=== PATIENT | male | born 1965 | race Caucasian/White ===

== ENCOUNTER 2020-02-04 11:10 | Outpatient (REF) | payer OTHER, SELFPAY ==
[2020-02-04 13:29] LABS: MANUAL DIFF FLAG NO
[2020-02-04 13:34] LABS: Basophils Absolute Auto 0.1 X10*3/uL (0.0-0.2); Basophils Percent Auto 0.9 % (0-2); Eosinophils Absolute Auto 0.1 X10*3/uL (0.0-0.4); Eosinophils Percent Auto 1.2 % (0-4); Hematocrit 46.9 % (42-52); Hemoglobin 15.4 g/dl (14.0-18.0); Imm Gran Abs Auto 0.02 X10*3/uL (0.00-0.03); Imm Gran Pct Auto 0.3 % (0.0-0.4); Lymphocytes Absolute Auto 1.4 X10*3/uL (1.2-4.9); Lymphocytes Percent Auto 17.8 % (20-40); Mean Corpuscular HGB Conc 32.8 g/dl (31.0-36.0); Mean Corpuscular Hemoglobin 27.8 pg (27.0-33.0); Mean Corpuscular Volume 84.7 fL (80-98); Mean Platelet Volume 11.5 fL (9.4-12.4); Monocytes Absolute Auto 0.5 X10*3/uL (0.1-1.2); Monocytes Percent Auto 7.1 % (2-11); Neutrophils Absolute Auto 5.5 X10*3/uL (2.0-8.3); Neutrophils Percent Auto 72.7 % (45-73); Platelet Count 256 X10*3/uL (160-400); Red Blood Count 5.54 X10*6/uL (4.60-5.80); Red Cell Distribution Width 12.6 % (11.0-16.0); White Blood Count 7.6 X10*3/uL (4.8-10.8)
[2020-02-04 13:41] LABS: Estimated Average Glucose 295 mg/dL; Hemoglobin A1c % 11.9 %
[2020-02-04 14:06] LABS: Glucose Urine UA >=1000 MG/DL (NEG); Leukocyte Esterase Urine NEG (NEG); Nitrite Urine NEG (NEG); Urine Blood NEG (NEG); Urine Ketones 15 MG/DL (NEG); Urine Protein NEG (NEG-TRACE)
[2020-02-04 14:08] LABS: Appearance Urine CLEAR; Color Urine YELLOW
[2020-02-04 14:31] LABS: RBC Urine 0-2 /HPF (0); WBC Urine 0-2 /HPF (0-4)
[2020-02-04 14:34] LABS: Alanine Aminotransferase 29 U/L (0-40); Albumin Level 4.3 g/dL (3.5-5.0); Alkaline Phosphatase 69 U/L (39-117); Anion Gap 16 (12-20); Aspartate Amino Transferase 15 U/L (5-37); Bilirubin Total 0.8 mg/dL (0.0-1.0); Blood Urea Nitrogen 20 mg/dL (9-16); C Reactive Protein 0.11 mg/dL (< or = 0.50); Calcium 9.4 mg/dL (8.4-10.2); Carbon Dioxide 27 mmol/L (22-29); Chloride 101 mmol/L (96-108); Estimated Glomerular Filt Rate 52; Glucose Random 315 mg/dL (60-115); Potassium 4.7 mmol/l (3.3-5.1); Sodium 139 mmol/L (135-145); Total Protein 6.9 g/dL (6.5-8.0)
[2020-02-04 14:40] LABS: Creatinine Urine 73.31 mg/dL; Microalbumin Urine < 5.0 mg/L
[2020-02-04 14:58] LABS: Prostate Specific Antigen Scr 0.78 ng/mL (<0.05-4.0)
== END 2020-02-04 11:11 | disposition home or self-care (01) ==
LOC: HO.10HDL 11:10
PROVIDERS: PCP Internal Medicine; Visit Provider Internal Medicine
DX: E11.9 Type 2 diabetes mellitus without complications (principal); I10 Essential (primary) hypertension; R30.0 Dysuria; R35.1 Nocturia
CPT/HCPCS: 36415; 80053; 81001; 82043; 83036; 84153; 85025; 86140; 87086; 88112

== ENCOUNTER 2020-05-05 11:45 | Outpatient (REF) | payer OTHER, SELFPAY ==
[2020-05-05 13:43] LABS: MANUAL DIFF FLAG NO
[2020-05-05 13:47] LABS: Basophils Absolute Auto 0.1 X10*3/uL (0.0-0.2); Basophils Percent Auto 0.7 % (0-2); Eosinophils Absolute Auto 0.1 X10*3/uL (0.0-0.4); Eosinophils Percent Auto 0.7 % (0-4); Hematocrit 44.5 % (42-52); Hemoglobin 14.9 g/dl (14.0-18.0); Imm Gran Abs Auto 0.03 X10*3/uL (0.00-0.03); Imm Gran Pct Auto 0.4 % (0.0-0.4); Lymphocytes Absolute Auto 1.2 X10*3/uL (1.2-4.9); Lymphocytes Percent Auto 16.6 % (20-40); Mean Corpuscular HGB Conc 33.5 g/dl (31.0-36.0); Mean Corpuscular Hemoglobin 28.4 pg (27.0-33.0); Mean Corpuscular Volume 84.9 fL (80-98); Mean Platelet Volume 11.4 fL (9.4-12.4); Monocytes Absolute Auto 0.5 X10*3/uL (0.1-1.2); Neutrophils Absolute Auto 5.3 X10*3/uL (2.0-8.3); Neutrophils Percent Auto 74.6 % (45-73); Platelet Count 263 X10*3/uL (160-400); Red Blood Count 5.24 X10*6/uL (4.60-5.80); Red Cell Distribution Width 13.9 % (11.0-16.0)
[2020-05-05 13:59] LABS: Estimated Average Glucose 114 mg/dL; Hemoglobin A1c % 5.6 %
[2020-05-05 14:29] LABS: Alanine Aminotransferase 21 U/L (0-40); Albumin Level 4.1 g/dL (3.5-5.0); Alkaline Phosphatase 64 U/L (39-117); Anion Gap 16 (12-20); Aspartate Amino Transferase 20 U/L (5-37); Bilirubin Total 1.2 mg/dL (0.0-1.0); Blood Urea Nitrogen 13 mg/dL (9-16); Calcium 9.1 mg/dL (8.4-10.2); Carbon Dioxide 26 mmol/L (22-29); Chloride 101 mmol/L (96-108); Estimated Glomerular Filt Rate > 60; Glucose Random 93 mg/dL (60-115); Potassium 4.2 mmol/L (3.3-5.1); Sodium 139 mmol/L (135-145); Total Protein 6.7 g/dL (6.5-8.0)
[2020-05-05 14:52] LABS: Creatinine Urine 71.82 mg/dL; Microalbumin Urine < 5.0 mg/L
== END 2020-05-05 11:46 | disposition home or self-care (01) ==
LOC: HO.10HDL 11:45
PROVIDERS: Visit Provider Internal Medicine
DX: I12.9 Hypertensive chronic kidney disease with stage 1 through stage 4 chronic kidney disease, or unspecified chronic kidney disease (principal); N18.9 Chronic kidney disease, unspecified; E11.22 Type 2 diabetes mellitus with diabetic chronic kidney disease
CPT/HCPCS: 36415; 80053; 82043; 83036; 85025

== ENCOUNTER 2020-05-07 15:12 | Outpatient (REF) | payer OTHER, SELFPAY ==
--- NOTE | ~2020-05-07 | US_ITS ---
EXAMINATION: US RETROPERITONEAL LIMITED (RENAL ONLY) CLINICAL INFORMATION: Renal failure, hypertension. COMPARISON: None TECHNIQUE: Real-time imaging of the kidneys. FINDINGS: RIGHT KIDNEY: 10.2 x 4.6 x 4.4 cm (SAG x AP x TRV). The kidney is normal in size, contour, and echogenicity. Renal cortical thickness is normal. No calculi or focal parenchymal lesions. No hydronephrosis. LEFT KIDNEY: 11.9 x 5.0 x 4.6 cm (SAG x AP x TRV). The kidney is normal in size, contour, and echogenicity. Renal cortical thickness is normal. No renal calculi or hydronephrosis. There is anechoic cyst in the midpole measuring 1.1 x 0.9 x 0.9 cm. US/US renal BI IMPRESSION: Small anechoic cyst midpole left kidney. There are no echogenic stones or hydronephrosis.
== END 2020-05-07 15:13 | disposition home or self-care (01) ==
LOC: HO.US 15:12
PROVIDERS: PCP Internal Medicine; Visit Provider Internal Medicine Nephrology
DX: N17.9 Acute kidney failure, unspecified (principal); I10 Essential (primary) hypertension
CPT/HCPCS: 76775

== ENCOUNTER 2020-05-12 07:52 | Outpatient (REF) | payer OTHER, SELFPAY ==
[2020-05-12 08:45] LABS: MANUAL DIFF FLAG NO
[2020-05-12 08:51] LABS: Basophils Percent Auto 0.7 % (0-2); Eosinophils Absolute Auto 0.1 X10*3/uL (0.0-0.4); Eosinophils Percent Auto 1.7 % (0-4); Hematocrit 47.1 % (42-52); Hemoglobin 15.2 g/dl (14.0-18.0); Imm Gran Abs Auto 0.02 X10*3/uL (0.00-0.03); Imm Gran Pct Auto 0.3 % (0.0-0.4); Lymphocytes Absolute Auto 1.5 X10*3/uL (1.2-4.9); Lymphocytes Percent Auto 24.7 % (20-40); Mean Corpuscular HGB Conc 32.3 g/dl (31.0-36.0); Mean Corpuscular Hemoglobin 27.9 pg (27.0-33.0); Mean Corpuscular Volume 86.6 fL (80-98); Mean Platelet Volume 11.4 fL (9.4-12.4); Monocytes Absolute Auto 0.5 X10*3/uL (0.1-1.2); Monocytes Percent Auto 7.9 % (2-11); Neutrophils Absolute Auto 3.9 X10*3/uL (2.0-8.3); Neutrophils Percent Auto 64.7 % (45-73); Platelet Count 265 X10*3/uL (160-400); Red Blood Count 5.44 X10*6/uL (4.60-5.80); Red Cell Distribution Width 14.1 % (11.0-16.0)
[2020-05-12 09:07] LABS: Alanine Aminotransferase 22 U/L (0-40); Albumin Level 4.1 g/dL (3.5-5.0); Alkaline Phosphatase 56 U/L (39-117); Anion Gap 16 (12-20); Aspartate Amino Transferase 16 U/L (5-37); Blood Urea Nitrogen 15 mg/dL (9-16); Calcium 9.2 mg/dL (8.4-10.2); Carbon Dioxide 26 mmol/L (22-29); Chloride 102 mmol/L (96-108); Estimated Glomerular Filt Rate > 60; Glucose Random 119 mg/dL (60-115); Potassium 4.4 mmol/L (3.3-5.1); Sodium 140 mmol/L (135-145); Total Protein 6.6 g/dL (6.5-8.0); Uric Acid 7.2 mg/dL (3.4-7.0)
[2020-05-12 09:31] LABS: HBsAGNum1 0.14 S/CO (0.00-0.99); Hepatitis B Surface Antigen Negative (Negative)
[2020-05-12 09:35] LABS: ~HepC Num1 0.04 S/CO (0.00-0.79); ~Hepatitis C Antibody Nonreactive (Nonreactive)
[2020-05-12 10:07] LABS: Glucose Urine UA NEG (NEG); Leukocyte Esterase Urine NEG (NEG); Nitrite Urine NEG (NEG); Specific Gravity - Urine 1.025 (1.005-1.025); Urine Blood NEG (NEG); Urine Ketones 40 MG/DL (NEG); Urine Protein NEG (NEG-TRACE)
[2020-05-12 10:08] LABS: Appearance Urine CLEAR; Color Urine YELLOW
[2020-05-12 10:49] LABS: Creatinine Urine 104.46 mg/dL; Total Protein Urine Random < 7 mg/dL (<12)
[2020-05-13 14:16] LABS: Complement C3 109 mg/dL (82-185)
[2020-05-13 14:42] LABS: Myeloperoxidase Antibody <1.0 AI; Proteinase 3 PR3 Antibodies <1.0 AI
[2020-05-13 15:06] LABS: Prot Elec - Albumin 3.9 g/dL (3.8-4.8); Prot Elec - Alpha1 0.3 g/dL (0.2-0.3); Prot Elec - Alpha2 0.7 g/dL (0.5-0.9); Prot Elec - Beta 1 0.5 g/dL (0.4-0.6); Prot Elec - Beta 2 0.4 g/dL (0.2-0.5); Prot Elec - Gamma 0.9 g/dL (0.8-1.7); Prot Elec - Total Protein 6.6 g/dL (6.1-8.1)
== END 2020-05-12 07:53 | disposition home or self-care (01) ==
LOC: HO.LAB 07:52
PROVIDERS: PCP Internal Medicine; Visit Provider Internal Medicine Nephrology
DX: I10 Essential (primary) hypertension (principal); N17.9 Acute kidney failure, unspecified
CPT/HCPCS: 36415; 80053; 81003; 82550; 84155; 84156; 84165; 84550; 85025; 86021; 86160; 86335; 86803; 87340

== ENCOUNTER 2020-08-13 07:26 | Outpatient (REF) | payer OTHER, SELFPAY ==
[2020-08-13 08:21] LABS: Estimated Average Glucose 105 mg/dL; Hemoglobin A1c % 5.3 %
[2020-08-13 08:29] LABS: Alanine Aminotransferase 16 U/L (0-40); Albumin Level 4.1 g/dL (3.5-5.0); Alkaline Phosphatase 60 U/L (39-117); Anion Gap 12 (12-20); Aspartate Amino Transferase 14 U/L (5-37); Bilirubin Total 0.9 mg/dL (0.0-1.0); Blood Urea Nitrogen 15 mg/dL (9-16); Calcium 9.7 mg/dL (8.4-10.2); Carbon Dioxide 29 mmol/L (22-29); Chloride 104 mmol/L (96-108); Cholesterol 256 mg/dL; Estimated Glomerular Filt Rate > 60; Glucose Fasting 113 mg/dL (60-99); HDL Cholesterol 51 mg/dL; LDL Cholesterol Calculated 184 mg/dl; Potassium 4.4 mmol/L (3.3-5.1); Sodium 141 mmol/L (135-145); Total Protein 6.9 g/dL (6.5-8.0); Triglycerides 108 mg/dL
[2020-08-13 09:20] LABS: Creatinine Urine 186.94 mg/dL; Microalbum/Creatinine Ratio Ur 3.7 ug/mg cr
== END 2020-08-13 07:27 | disposition home or self-care (01) ==
LOC: HO.LAB 07:26
PROVIDERS: PCP Internal Medicine; Visit Provider Internal Medicine
DX: E11.9 Type 2 diabetes mellitus without complications (principal); I10 Essential (primary) hypertension; E78.00 Pure hypercholesterolemia, unspecified
CPT/HCPCS: 36415; 80053; 80061; 82043; 83036

== ENCOUNTER 2020-10-18 16:29 | Emergency (ER) | payer OTHER, SELFPAY ==
--- NOTE | ~2020-10-18 | CT_ITS ---
EXAMINATION: CT OF THE HEAD AND CERVICAL SPINE WITHOUT CONTRAST CLINICAL INFORMATION: Reason for Exam s/p unwitnessed fall w/ head strike . COMPARISON: None. TECHNIQUE: Contiguous axial imaging was performed from the skull base to vertex. Soft tissue and bony algorithms were evaluated. Coronal reformatted images were obtained on the technologist's workstation. Following this, multiple serial thin slice helical CT scan images through the cervical spine were obtained. Soft tissue and bony algorithms were evaluated. Coronal and sagittal reformatted images were obtained on the technologist workstation. This CT examination was performed using dose optimization techniques as appropriate, variously including the following: *Automated exposure control *Adjustment of mA and/or kV according to patient size (this includes techniques or standardized protocols for targeted exams where dose is matched to indication/reason for exam; i.e. extremities or head) *Use of iterative reconstruction technique DLP: 1015 mGy cm FINDINGS: Head CT: The ventricles are normal in size and symmetry. There is no evidence of acute intracranial hemorrhage or territorial infarction. No abnormal mass-effect or midline shift is seen. Ortiz to white matter differentiation is well preserved. No extra-axial fluid collections are identified. There is no abnormal attenuation within the brain parenchyma. The osseous structures and soft tissues are normal. The mastoid air cells and visualized portions of the paranasal sinuses are well-aerated. Incidental nasal septal spurring to the left. Cervical spine CT: No prevertebral soft tissue swelling is appreciated. The bones are in normal anatomic alignment with no acute fracture or spondylolisthesis. Mild degenerative changes with small anterior osteophyte formation at C4/C5 and C5/C6. Otherwise body heights and disc heights are preserved. Posterior elements are unremarkable. Visualized airway and lung apices are unremarkable. Visualized thyroid gland unremarkable. CT/CT cervical spine wo con IMPRESSION: Head CT: No acute intracranial pathology. C-spine: No acute bony abnormality in the cervical spine.
[2020-10-18 17:07] VITALS: BP 151/100; PULSE 100; RESP 18; TEMP 37.3; O2SAT 97; BMI 24.1
--- NOTE | 2020-10-18 18:12 | ECG_ITS ---
Test Reason : FALL Blood Pressure : / mmHG Vent. Rate : 071 BPM Atrial Rate : 071 BPM P-R Int : 224 ms QRS Dur : 104 ms QT Int : 392 ms P-R-T Axes : 047 -46 033 degrees QTc Int : 425 ms 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) Abnormal ECG When compared with ECG of 31-JAN-2018 03:11, Borderline criteria for Anterior infarct are no longer Present Referred By: Pooja Quinn Electronically Signed By:TARIQ BETTENCORUT
--- NOTE | 2020-10-18 19:00 | ED.PSYCH ---
HPI - Psych General Chief Complaint: Psychiatric Symptoms Stated Complaint: depression, anxiety Time Seen by Provider: 10/18/20 18:12 Source: patient Mode of arrival: ambulatory Limitations: no limitations History of Present Illness HPI Narrative: 55 y/o male with history of DM, HTN, HLD who presents to the ER with concern for mental breakdown. 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 About 1 month ago he lost a 30 yo man who he knew well and knew the father well. Since then he has had significant increase in anxiety, depression, short temper, racing thoughts about him being a burden. He reports he cannot control his racing thoughts. He has aggressive thoughts about hurting people but would never carry them out. He denies any suicidal thoughts and has no plan on harming himself. His is very supportive and concerned. His sleep has been very poor for the last 1 month. No history of any issues like this in the past. This morning patient woke up at 4am with racing thoughts and anxiety. He got up to use the bathroom at 7am. When he got back to the bed he sat on the bedside with his head in his hands and then next thing he remembers is his tending to him. She heard a thump and ran to the room to find him on the hardwood floor. He hit his head. He was awake when she entered the room. After that he had a breakdown and was very tearful. He spent the day on the couch. encouraged him to come to the ER for medical clearance and psych evaluation. complaint: feels depressed and anxiety Onset (ago): week(s) (4) Duration: getting worse History of same: No Relieving factors: none Exacerbating factors: none Context: significant life stressor Associated psychiatric symptoms: depression, homicidal ideation and racing thoughts Associated symptoms: syncope and insomnia Treatments prior to arrival: none Related Data Previous Rx's Medication Instructions Recorded hydroxyzine HCl 50 mg tablet 50 mg PO BEDTIME PRN #14 tab 10/18/20 Allergies Allergy/AdvReac Type Severity Reaction Status Date / Time shellfish derived Allergy Severe SWELLING Unverified 10/30/19 15:11 iodine Allergy Unknown Verified 10/02/18 00:00 Primatene Asthma Allergy Unknown Uncoded 10/02/18 00:00 sea food Allergy Unknown Uncoded 10/02/18 00:00 Review of Systems Constitutional: Constitutional: Denies body ache(s), Denies chills, Reports difficulty sleeping, Denies fever(s), Denies frequent falls and Denies headache(s) Eyes: Eyes: Reports no additional eye complaints ENT: Reports Normal hearing present, Denies headache(s), Denies neck pain, Denies sore throat and Denies tongue swelling Cardiovascular: Cardiovascular: Denies chest pain, Reports syncope, Denies rapid heart rate, Denies lightheadedness and Denies dyspnea Respiratory: Respiratory: Denies cough, Denies dyspnea and Denies wheezing Gastrointestinal: Gastrointestinal: Denies abdominal pain, Denies nausea and Denies vomiting Musculoskeletal: Musculoskeletal: Denies abnormal gait, Denies back pain, Denies myalgias, Denies arthralgias and Denies neck pain Integumentary/Breasts: Skin/Breast: Denies rash Neurologic: Reports Normal hearing present, Denies Abnormal speech present, Denies abnormal gait, Reports behavioral changes, Reports syncope, Denies frequent falls, Denies headache(s), Denies focal weakness and Denies seizure-like activity Psychiatric: Psychiatric: Reports abnormal sleep pattern, Reports anxiety, Reports behavioral changes, Reports depression, Reports difficulty concentrating, Reports hopelessness, Reports irritability, Reports anhedonia, Reports mood swings, Denies paranoia, Reports homicidal ideation and Denies suicidal ideation Hematologic/Lymphatic: Hematologic/Lymphatic: Denies easy bleeding and Denies easy bruising Allergic/Immunologic: Allergic/Immunologic: Denies tongue swelling and Denies wheezing PMFSH Past Medical History Medical History Back problem Diabetes Heart attack High cholesterol HTN (hypertension) Social History Social History Advance Directives: No Advance Directives Information Provided: No Guardian: No Physical Exam Vital Signs: Vital Signs: Last Vital Signs Temp 96.5 F L 10/18/20 20:03 Pulse 68 10/18/20 20:03 Resp 16 10/18/20 20:03 BP 156/78 H 10/18/20 20:03 Pulse Ox 97 10/18/20 20:03 Body Mass Index 24.1 Const: General: cooperative, healthy appearing, comfortable, no acute distress, alert and awake Nutritional Appearance: thin Orientation/consciousness: patient oriented x3 Limitations: no limitations HENMT: Head: Yes normal to inspection and Yes abrasion (minor, superficial centrally) Ears: hearing grossly normal bilaterally and TM's normal bilaterally General nose exam: Normal external nose present and Normal nares present Face and sinus: Yes normal facial exam and Yes face symmetric Mouth: Normal oral and palatal mucosa present, lip normal, tongue normal and moist mucous membranes Teeth and gingiva: dentition normal and gingiva normal Throat: Yes posterior oropharynx normal, Yes tonsils normal and Yes uvula midline Eyes: General: appearance normal, both eyes and all related structures Pupils: Equal, round and reactive pupils present EOM: EOMs intact bilaterally Neck: Neck: Yes normal visual inspection, Yes full ROM, Yes no lymphadenopathy, No midline deformity and No tender Chest: Chest palpation & inspection: normal inspection of the chest and normal palpation of entire chest wall Resp: Effort & Inspection: normal respiratory effort and able to speak in complete sentences Auscultation: clear to auscultation bilaterally Cardio: Rate: regular rate Rhythm: regular rhythm Heart sounds: S1 normal heart sound present and S2 normal heart sound present GI: Inspection: Yes normal to inspection Palpation (GI): Soft to palpation, not firm, nontender and no guarding Percussion: Yes normal to percussion Auscultation: normal bowel sounds Back/Spine/Pelvis: Cervical Spine: normal cervical lordosis, cervical ROM normal, No cervical muscular tenderness and No Cervical spine tenderness Thoracic/Lumbar Spine: thoracic and lumbar spine normal to inspection Skin: General skin exam: no rashes or lesions noted Neuro: General: patient oriented x3 Cranial nerves: Yes Equal, round and reactive pupils present and Yes Normal hearing present Cognition (Neuro): normal cognition Speech: No Abnormal speech present Extrem: General: Yes normal to inspection and Yes full ROM Psych: Appearance: grossly normal and well kempt Mental Status: mental status grossly normal Speech and movement: Normal speech and movement present Affect: Sad affect present Attitude: cooperative Thought process: Normal thought process present Thought content: Normal thought content present Insight: Good insight present (Psych) Judgement: Good judgement present (Psych) Course Course Course Narrative: 55 y/o male presenting with increased stressors at home and work, increased anxiety and depression. Possible syncopal event while sitting on the edge of the bed. His exam is unremarkable and he is feeling better. His main concern is his mood, anxiety and he admits to needing help coping with his stress at home. No SI or HI at this time. Will need medical clearance before being seen by the CARE team. Reevaluation(s) Reevaluation #1: Medically cleared. CARE team evaluted the patient and multiple resources were given to him and his for outpatient therapy and [facility] crisis. He is not currently in crisis and is stable for discharge home with outpatient follow up. comfortable taking him home and will call therapy offices tomorrow. MDM - Psych Lab Data Result diagrams: 10/18/20 19:28 10/18/20 19:28 Labs: Lab Results 10/18/20 10/18/20 10/18/20 Range/Units 19:28 19:28 19:28 WBC 10.5 (4.8-10.8) X10*3/uL RBC 5.50 (4.60-5.80) X10*6/uL Hgb 15.6 (14.0-18.0) g/dl Hct 45.4 (42-52) % MCV 82.5 (80-98) fL MCH 28.4 (27.0-33.0) pg MCHC 34.4 (31.0-36.0) g/dl RDW 13.4 (11.0-16.0) % Plt Count 265 (160-400) X10*3/uL MPV 10.8 (9.4-12.4) fL Immature Gran % (Auto) 0.2 (0.0-0.4) % Neut % (Auto) 76.8 H (45-73) % Lymph % (Auto) 15.5 L (20-40) % [place] % (Auto) 6.6 (2-11) % Eos % (Auto) 0.6 (0-4) % Baso % (Auto) 0.3 (0-2) % Lymph # (Auto) 1.6 (1.2-4.9) X10*3/uL [place] # (Auto) 0.7 (0.1-1.2) X10*3/uL Eos # (Auto) 0.1 (0.0-0.4) X10*3/uL Baso # (Auto) 0.0 (0.0-0.2) X10*3/uL Abs Immat Gran (auto) 0.02 (0.00-0.03) X10*3/uL Absolute Neuts (auto) 8.1 (2.0-8.3) X10*3/uL Absolute Nucleated RBC 0.000 (0.0-0.012) X10*3/uL Nucleated RBC % (auto) 0.0 (0.0-0.2) /100WBC Sodium 140 (135-145) mmol/L Potassium 3.7 (3.3-5.1) mmol/L Chloride 106 (96-108) mmol/L Carbon Dioxide 27 (22-29) mmol/L Anion Gap 11 L (12-20) BUN 16 (9-16) mg/dL Creatinine 0.98 (0.5-1.4) mg/dL Estim Creat Clear Calc 73.2 Estimated GFR > 60 Random Glucose 92 (60-115) mg/dL Calcium 9.5 (8.4-10.2) mg/dL Magnesium 2.1 (1.6-2.6) mg/dL Total Bilirubin 0.7 (0.0-1.0) mg/dL Direct Bilirubin 0.3 (0.0-0.5) mg/dL AST 12 (5-37) U/L ALT 16 (0-40) U/L Alkaline Phosphatase 53 (39-117) U/L Total Creatine Kinase (38-174) U/L Total Protein 6.6 (6.5-8.0) g/dL Albumin 4.0 (3.5-5.0) g/dL Urine Color Urine Appearance Urine pH (5.0-8.0) Ur Specific [place] (1.005-1.025) Urine Protein (NEG-TRACE) MG/DL Urine Glucose (UA) (NEG) MG/DL Urine Ketones (NEG) MG/DL Urine Blood (NEG) Urine Nitrite (NEG) Ur Leukocyte Esterase (NEG) Urine Opiates Screen (Not Detect) Urine Fentanyl Screen (Not Detect) Ur Barbiturates Screen (Not Detect) Ur Phencyclidine Scrn (Not Detect) Ur Amphetamines Screen (Not Detect) U Benzodiazepines Scrn (Not Detect) Urine Cocaine Screen (Not Detect) U Marijuana (THC) Screen (Not Detect) Ethyl Alcohol mg/dL COVID-19 (BARBARA) Negative (Negative) COVID-19 Clin Com See Note 0910/18/20 10/18/20 Range/Units 19:28 19:28 19:53 WBC (4.8-10.8) X10*3/uL RBC (4.60-5.80) X10*6/uL Hgb (14.0-18.0) g/dl Hct (42-52) % MCV (80-98) fL MCH (27.0-33.0) pg MCHC (31.0-36.0) g/dl RDW (11.0-16.0) % Plt Count (160-400) X10*3/uL MPV (9.4-12.4) fL Immature Gran % (Auto) (0.0-0.4) % Neut % (Auto) (45-73) % Lymph % (Auto) (20-40) % [place] % (Auto) (2-11) % Eos % (Auto) (0-4) % Baso % (Auto) (0-2) % Lymph # (Auto) (1.2-4.9) X10*3/uL [place] # (Auto) (0.1-1.2) X10*3/uL Eos # (Auto) (0.0-0.4) X10*3/uL Baso # (Auto) (0.0-0.2) X10*3/uL Abs Immat Gran (auto) (0.00-0.03) X10*3/uL Absolute Neuts (auto) (2.0-8.3) X10*3/uL Absolute Nucleated RBC (0.0-0.012) X10*3/uL Nucleated RBC % (auto) (0.0-0.2) /100WBC Sodium (135-145) mmol/L Potassium (3.3-5.1) mmol/L Chloride (96-108) mmol/L Carbon Dioxide (22-29) mmol/L Anion Gap (12-20) BUN (9-16) mg/dL Creatinine (0.5-1.4) mg/dL Estim Creat Clear Calc Estimated GFR Random Glucose (60-115) mg/dL Calcium (8.4-10.2) mg/dL Magnesium (1.6-2.6) mg/dL Total Bilirubin (0.0-1.0) mg/dL Direct Bilirubin (0.0-0.5) mg/dL AST (5-37) U/L ALT (0-40) U/L Alkaline Phosphatase (39-117) U/L Total Creatine Kinase 119 (38-174) U/L Total Protein (6.5-8.0) g/dL Albumin (3.5-5.0) g/dL Urine Color STRAW Urine Appearance CLEAR Urine pH 6.0 (5.0-8.0) Ur Specific [place] 1.025 (1.005-1.025) Urine Protein NEG (NEG-TRACE) MG/DL Urine Glucose (UA) NEG (NEG) MG/DL Urine Ketones 40 (NEG) MG/DL Urine Blood NEG (NEG) Urine Nitrite NEG (NEG) Ur Leukocyte Esterase NEG (NEG) Urine Opiates Screen (Not Detect) Urine Fentanyl Screen (Not Detect) Ur Barbiturates Screen (Not Detect) Ur Phencyclidine Scrn (Not Detect) Ur Amphetamines Screen (Not Detect) U Benzodiazepines Scrn (Not Detect) Urine Cocaine Screen (Not Detect) U Marijuana (THC) Screen (Not Detect) Ethyl Alcohol < 10 mg/dL COVID-19 (BARBARA) (Negative) COVID-19 Clin Com 10/18/20 Range/Units 19:53 WBC (4.8-10.8) X10*3/uL RBC (4.60-5.80) X10*6/uL Hgb (14.0-18.0) g/dl Hct (42-52) % MCV (80-98) fL MCH (27.0-33.0) pg MCHC (31.0-36.0) g/dl RDW (11.0-16.0) % Plt Count (160-400) X10*3/uL MPV (9.4-12.4) fL Immature Gran % (Auto) (0.0-0.4) % Neut % (Auto) (45-73) % Lymph % (Auto) (20-40) % [place] % (Auto) (2-11) % Eos % (Auto) (0-4) % Baso % (Auto) (0-2) % Lymph # (Auto) (1.2-4.9) X10*3/uL [place] # (Auto) (0.1-1.2) X10*3/uL Eos # (Auto) (0.0-0.4) X10*3/uL Baso # (Auto) (0.0-0.2) X10*3/uL Abs Immat Gran (auto) (0.00-0.03) X10*3/uL Absolute Neuts (auto) (2.0-8.3) X10*3/uL Absolute Nucleated RBC (0.0-0.012) X10*3/uL Nucleated RBC % (auto) (0.0-0.2) /100WBC Sodium (135-145) mmol/L Potassium (3.3-5.1) mmol/L Chloride (96-108) mmol/L Carbon Dioxide (22-29) mmol/L Anion Gap (12-20) BUN (9-16) mg/dL Creatinine (0.5-1.4) mg/dL Estim Creat Clear Calc Estimated GFR Random Glucose (60-115) mg/dL Calcium (8.4-10.2) mg/dL Magnesium (1.6-2.6) mg/dL Total Bilirubin (0.0-1.0) mg/dL Direct Bilirubin (0.0-0.5) mg/dL AST (5-37) U/L ALT (0-40) U/L Alkaline Phosphatase (39-117) U/L Total Creatine Kinase (38-174) U/L Total Protein (6.5-8.0) g/dL Albumin (3.5-5.0) g/dL Urine Color Urine Appearance Urine pH (5.0-8.0) Ur Specific [place] (1.005-1.025) Urine Protein (NEG-TRACE) MG/DL Urine Glucose (UA) (NEG) MG/DL Urine Ketones (NEG) MG/DL Urine Blood (NEG) Urine Nitrite (NEG) Ur Leukocyte Esterase (NEG) Urine Opiates Screen Not Detected (Not Detect) Urine Fentanyl Screen Not Detected (Not Detect) Ur Barbiturates Screen Not Detected (Not Detect) Ur Phencyclidine Scrn Not Detected (Not Detect) Ur Amphetamines Screen Not Detected (Not Detect) U Benzodiazepines Scrn Not Detected (Not Detect) Urine Cocaine Screen Not Detected (Not Detect) U Marijuana (THC) Screen Not Detected (Not Detect) Ethyl Alcohol mg/dL COVID-19 (BARBARA) (Negative) COVID-19 Clin Com ECG Data Attestation: I personally reviewed and interpreted this ECG as follows: Prior ECG tracings: available for review Interpretation: sinus rhythm with 1st degree AV block, IL interval 224 ms, HR 71 bpm, unchanged from prior Critical Care Time Critical Care Time Critical Care Time: No Discharge Plan Discharge Clinical Impression: Depression, Acute anxiety Patient Disposition: Home, Self-Care Instructions: Depression (ED), Anxiety (ED) Additional Instructions: Your lab workup today was normal. Your CT scans were normal. Follow up with your doctor and call the numbers provided to arrange therapy. Take the prescribed medication at night as needed for anxiety. If you develop new or worsening symptoms call 911 or come back to the ER for further evaluation. Prescriptions: New hydroxyzine HCl 50 mg tablet 50 mg PO BEDTIME PRN (Reason: anxiety) Qty: 14 RF: 0 Interventions: ED Discharge Assessment Last Done: 10/18/20 22:01 Discharge Date/Time: 10/18/20 22:02
[2020-10-18 19:47] LABS: Basophils Percent Auto 0.3 % (0-2); Eosinophils Absolute Auto 0.1 X10*3/uL (0.0-0.4); Eosinophils Percent Auto 0.6 % (0-4); Hematocrit 45.4 % (42-52); Hemoglobin 15.6 g/dl (14.0-18.0); Imm Gran Abs Auto 0.02 X10*3/uL (0.00-0.03); Imm Gran Pct Auto 0.2 % (0.0-0.4); Lymphocytes Absolute Auto 1.6 X10*3/uL (1.2-4.9); Lymphocytes Percent Auto 15.5 % (20-40); MANUAL DIFF FLAG NO; Mean Corpuscular HGB Conc 34.4 g/dl (31.0-36.0); Mean Corpuscular Hemoglobin 28.4 pg (27.0-33.0); Mean Corpuscular Volume 82.5 fL (80-98); Mean Platelet Volume 10.8 fL (9.4-12.4); Monocytes Absolute Auto 0.7 X10*3/uL (0.1-1.2); Monocytes Percent Auto 6.6 % (2-11); Neutrophils Absolute Auto 8.1 X10*3/uL (2.0-8.3); Neutrophils Percent Auto 76.8 % (45-73); Platelet Count 265 X10*3/uL (160-400); Red Cell Distribution Width 13.4 % (11.0-16.0); White Blood Count 10.5 X10*3/uL (4.8-10.8)
[2020-10-18 20:01] LABS: COVID-19 Test Negative (Negative); IDNOW Serial# 9DD0AD1C
[2020-10-18 20:02] LABS: Ethanol < 10 mg/dL
[2020-10-18 20:03] VITALS: BP 156/78; PULSE 68; RESP 16; TEMP 35.8; O2SAT 97
[2020-10-18 20:04] LABS: Alanine Aminotransferase 16 U/L (0-40); Alkaline Phosphatase 53 U/L (39-117); Anion Gap 11 (12-20); Aspartate Amino Transferase 12 U/L (5-37); Bilirubin Direct 0.3 mg/dL (0.0-0.5); Bilirubin Total 0.7 mg/dL (0.0-1.0); Blood Urea Nitrogen 16 mg/dL (9-16); Calcium 9.5 mg/dL (8.4-10.2); Carbon Dioxide 27 mmol/L (22-29); Chloride 106 mmol/L (96-108); Creatinine Clr Calc Pharmacy 73.2; Estimated Glomerular Filt Rate > 60; Glucose Random 92 mg/dL (60-115); Magnesium 2.1 mg/dL (1.6-2.6); Potassium 3.7 mmol/L (3.3-5.1); Sodium 140 mmol/L (135-145); Total Protein 6.6 g/dL (6.5-8.0)
[2020-10-18 20:10] LABS: Glucose Urine UA NEG (NEG); Leukocyte Esterase Urine NEG (NEG); Nitrite Urine NEG (NEG); Specific Gravity - Urine 1.025 (1.005-1.025); Urine Blood NEG (NEG); Urine Ketones 40 MG/DL (NEG); Urine Protein NEG (NEG-TRACE)
[2020-10-18 20:11] LABS: Appearance Urine CLEAR; Color Urine STRAW
[2020-10-18 20:18] LABS: Amphetamine Screen Urine Not Detected (Not Detect); Barbiturates, Urine Not Detected (Not Detect); Benzodiazepines Screen Urine Not Detected (Not Detect); Cannabinoid Screen Urine Not Detected (Not Detect); Cocaine Screen Urine Not Detected (Not Detect); Fentanyl, urine Not Detected (Not Detect); Opiate Screen Urine Not Detected (Not Detect); Phencyclidine Screen Urine Not Detected (Not Detect)
--- NOTE | 2020-10-18 21:53 | MHC.CARE ---
CARE team consult received for pt who self presented to ED endorsing increasing anxiety and depression for the past month. Evaluation completed with recommendation for outpatient services. Pt was provided with information for two local private practice therapy groups and information for [facility] crisis services. Consulted with ED provider Pooja HAWK who is in agreement with plan of care.
[2020-10-18] MEDS: hydrOXYzine HCL 50 MG TABLET PO (21:59)
== END 2020-10-18 22:02 | disposition home or self-care (01) ==
PROVIDERS: Physician Assistant; Emergency Provider Internal Medicine; PCP Internal Medicine
DX: F41.9 Anxiety disorder, unspecified (principal); F32.9 Major depressive disorder, single episode, unspecified; S00.81XA Abrasion of other part of head, initial encounter; W06.XXXA Fall from bed, initial encounter; E11.9 Type 2 diabetes mellitus without complications; I10 Essential (primary) hypertension; E78.5 Hyperlipidemia, unspecified; Z20.822 Contact with and (suspected) exposure to COVID-19; Z72.89 Other problems related to lifestyle; Z56.6 Other physical and mental strain related to work; Y93.89 Activity, other specified; Y92.013 Bedroom of single-family (private) house as the place of occurrence of the external cause; Y99.9 Unspecified external cause status
CPT/HCPCS: 36415; 70450; 72125; 80048; 80076; 80307; 81003; 82077; 82550; 83735; 85025; 87635; 93005; 99285

== ENCOUNTER 2020-11-17 10:47 | Outpatient (REF) | payer OTHER, SELFPAY ==
--- NOTE | ~2020-11-17 | XR_ITS ---
EXAMINATION: XR ABDOMEN KUB CLINICAL INDICATION: Abdominal pain. COMPARISON: Most recent renal ultrasound dated 05/07/2020. TECHNIQUE: AP views of the abdomen. FINDINGS: Mild stool burden. Nonobstructive bowel gas pattern. No abnormal soft tissue calcification. No acute osseous abnormality. XR/XR KUB IMPRESSION: Unremarkable examination.
[2020-11-17 13:32] LABS: MANUAL DIFF FLAG NO
[2020-11-17 13:34] LABS: Basophils Percent Auto 0.4 % (0-2); Eosinophils Absolute Auto 0.1 X10*3/uL (0.0-0.4); Eosinophils Percent Auto 0.7 % (0-4); Hematocrit 45.3 % (42-52); Hemoglobin 14.9 g/dl (14.0-18.0); Imm Gran Abs Auto 0.02 X10*3/uL (0.00-0.03); Imm Gran Pct Auto 0.3 % (0.0-0.4); Lymphocytes Absolute Auto 1.1 X10*3/uL (1.2-4.9); Lymphocytes Percent Auto 14.7 % (20-40); Mean Corpuscular HGB Conc 32.9 g/dl (31.0-36.0); Mean Corpuscular Hemoglobin 27.7 pg (27.0-33.0); Mean Corpuscular Volume 84.2 fL (80-98); Mean Platelet Volume 11.2 fL (9.4-12.4); Monocytes Absolute Auto 0.6 X10*3/uL (0.1-1.2); Monocytes Percent Auto 7.6 % (2-11); Neutrophils Absolute Auto 5.8 X10*3/uL (2.0-8.3); Neutrophils Percent Auto 76.3 % (45-73); Platelet Count 245 X10*3/uL (160-400); Red Blood Count 5.38 X10*6/uL (4.60-5.80); Red Cell Distribution Width 13.6 % (11.0-16.0); White Blood Count 7.6 X10*3/uL (4.8-10.8)
[2020-11-17 13:54] LABS: Alanine Aminotransferase 16 U/L (0-40); Albumin Level 4.1 g/dL (3.5-5.0); Alkaline Phosphatase 49 U/L (39-117); Anion Gap 13 (12-20); Aspartate Amino Transferase 13 U/L (5-37); Blood Urea Nitrogen 20 mg/dL (9-16); C Reactive Protein 0.04 mg/dL (< or = 0.50); Calcium 9.6 mg/dL (8.4-10.2); Carbon Dioxide 28 mmol/L (22-29); Chloride 104 mmol/L (96-108); Estimated Glomerular Filt Rate > 60; Glucose Random 114 mg/dL (60-115); Potassium 4.1 mmol/L (3.3-5.1); Sodium 141 mmol/L (135-145); Total Protein 6.7 g/dL (6.5-8.0)
[2020-11-17 13:59] LABS: Appearance Urine CLEAR; Color Urine YELLOW; Glucose Urine UA NEG (NEG); Leukocyte Esterase Urine NEG (NEG); Nitrite Urine NEG (NEG); UACC Culture Trigger NO; Urine Blood TRACE (NEG); Urine Ketones 40 MG/DL (NEG); Urine Protein NEG (NEG-TRACE)
[2020-11-17 14:12] LABS: WBC Urine 0-2 /HPF (0-4)
== END 2020-11-17 10:48 | disposition home or self-care (01) ==
LOC: HO.10HDL 10:47
PROVIDERS: Visit Provider Internal Medicine
DX: R10.9 Unspecified abdominal pain (principal); E11.9 Type 2 diabetes mellitus without complications; R30.0 Dysuria
CPT/HCPCS: 36415; 74018; 80053; 81001; 81003; 85025; 86140; 87086

== ENCOUNTER 2020-11-19 16:11 | Outpatient (REF) | payer OTHER, SELFPAY ==
--- NOTE | ~2020-11-19 | US_ITS ---
EXAMINATION: US ABDOMEN COMPLETE CLINICAL INFORMATION: Abdominal pain, dysuria. COMPARISON: KUB 11/17/2020. Renal ultrasound 05/07/2020. TECHNIQUE: Real-time imaging of the abdominal viscera. FINDINGS: PANCREAS: Not well visualized due to bowel gas ABDOMINAL AORTA: The proximal mid and distal segments are normal in caliber. The proximal abdominal aorta is not well visualized due to bowel gas. INFERIOR VENA CAVA: Not well visualized due to bowel gas LIVER: Not well visualized due to bowel gas, particularly the left lobe. The liver is normal in size. The liver contour is normal. Parenchymal echogenicity is normal. No focal hepatic lesion. There is no intrahepatic biliary duct dilatation seen. GALLBLADDER: There are several rounded echogenic densities adjacent to the gallbladder wall but do not move or shadow suggestive of polyps. The largest measures 5 mm. The gallbladder is physiologically distended without evidence of stones, sludge, wall thickening or pericholecystic fluid. COMMON BILE DUCT: Normal in caliber measuring 0.2 cm in diameter. RIGHT KIDNEY: Normal. No hydronephrosis. No renal calculi or focal parenchymal lesions. The kidney measures 11.0 cm in maximum dimension. LEFT KIDNEY: There is a 0.7 x 1.5 x 1.2 cm peripelvic cyst. No hydronephrosis. No renal calculi or focal parenchymal lesions. The kidney measures 12.1 cm in maximum dimension. SPLEEN: Normal. The spleen measures 11.1 cm in maximum dimension. FREE FLUID: None. US/US abdomen complete IMPRESSION: Limited exam. In particular, visualization of the left lobe of the liver, pancreas, aorta and IVC are limited. Gallbladder wall polyps. Left renal cyst.
== END 2020-11-19 16:12 | disposition home or self-care (01) ==
LOC: HO.US 16:11
PROVIDERS: PCP Internal Medicine; Visit Provider Internal Medicine
DX: R10.84 Generalized abdominal pain (principal); R63.4 Abnormal weight loss; R30.0 Dysuria
CPT/HCPCS: 76700

== ENCOUNTER 2020-12-02 08:10 | Outpatient (REF) | payer OTHER, SELFPAY ==
--- NOTE | ~2020-12-02 | CT_ITS ---
EXAMINATION: CT ABDOMEN AND PELVIS WITHOUT CONTRAST CLINICAL INFORMATION: Abdominal pain COMPARISON: Previous ultrasound of the abdomen over 2020 TECHNIQUE: Multidetector volumetric imaging was performed from the superior aspect of the liver through the pubic symphysis. Sagittal and coronal reformatted images were obtained on the technologist's workstation. This CT examination was performed using dose optimization techniques as appropriate, variously including the following: *Automated exposure control *Adjustment of mA and/or kV according to patient size (this includes techniques or standardized protocols for targeted exams where dose is matched to indication/reason for exam; i.e. extremities or head) *Use of iterative reconstruction technique DLP: 316 mGy-cm FINDINGS: LUNG BASES: The visualized lung bases are unremarkable. LIVER, GALLBLADDER, AND BILIARY TREE: The liver is normal in size, shape, and attenuation. No focal hepatic lesion or biliary ductal dilatation is present. The gallbladder is unremarkable with no evidence of radiopaque gallstones, gallbladder wall thickening, or obvious pericholecystic inflammatory changes. PANCREAS: Unremarkable. SPLEEN: Unremarkable. ADRENAL GLANDS: Unremarkable. KIDNEYS AND URETERS: There is a small 2 mm stone in the upper pole of the left kidney. There is a small peripelvic cyst in the upper pole. The kidneys are otherwise unremarkable. BLADDER: Unremarkable. GASTROINTESTINAL TRACT: The small and large bowel are unremarkable. The appendix is unremarkable. ABDOMINAL WALL: No significant hernia is appreciated. LYMPH NODES: Normal. VASCULAR: Unremarkable. PELVIC VISCERA: The prostate gland is slightly enlarged measuring 4 x 5 cm in AP and transverse dimension. OSSEOUS STRUCTURES: Unremarkable. CT/CT abdomen pelvis wo con IMPRESSION: Small 2 mm left upper pole renal stone. Slightly enlarged prostate gland.
== END 2020-12-02 08:11 | disposition home or self-care (01) ==
LOC: HO.CT 08:10
PROVIDERS: Visit Provider Internal Medicine
DX: R10.84 Generalized abdominal pain (principal); N28.1 Cyst of kidney, acquired; K82.4 Cholesterolosis of gallbladder; R30.0 Dysuria; R63.4 Abnormal weight loss
CPT/HCPCS: 74176

== ENCOUNTER 2020-12-10 14:20 | Outpatient (REF) | payer OTHER, SELFPAY ==
[2020-12-10 15:46] LABS: Thyroid Stimulating Hormone 1.09 uIU/mL (0.32-4.0)
[2020-12-14 18:11] LABS: Immunoglobulin A 278 mg/dL (47-310)
[2020-12-15 13:22] LABS: Endomysial IgA Antibody Negative (Negative)
[2020-12-17 14:47] LABS: Transglutaminase Ab IgG <1.0 U/mL; Transglutaminase IgA <1.0 U/mL
[2020-12-18 14:06] LABS: Gliadin Deamidated IgA Ab 1.5 U/mL; Gliadin Deamidated IgG Ab <1.0 U/mL
== END 2020-12-10 14:21 | disposition home or self-care (01) ==
LOC: HO.LAB 14:20
PROVIDERS: PCP Internal Medicine; Visit Provider Internal Medicine
DX: R63.4 Abnormal weight loss (principal); K59.00 Constipation, unspecified
CPT/HCPCS: 36415; 82784; 83516; 84436; 84443; 86255; 86256

== ENCOUNTER 2020-12-14 07:27 | Outpatient (REF) | payer OTHER, SELFPAY ==
[2020-12-14 08:35] LABS: Anion Gap 12 (12-20); Blood Urea Nitrogen 18 mg/dL (9-16); Calcium 9.4 mg/dL (8.4-10.2); Carbon Dioxide 31 mmol/L (22-29); Chloride 102 mmol/L (96-108); Estimated Glomerular Filt Rate > 60; Potassium 4.1 mmol/L (3.3-5.1); Sodium 141 mmol/L (135-145)
[2020-12-14 09:16] LABS: Creatinine Urine 142.98 mg/dL; Total Protein Urine Random < 7 mg/dL (<12)
== END 2020-12-14 07:28 | disposition home or self-care (01) ==
LOC: HO.LAB 07:27
PROVIDERS: PCP Internal Medicine; Visit Provider Internal Medicine Nephrology
DX: I12.9 Hypertensive chronic kidney disease with stage 1 through stage 4 chronic kidney disease, or unspecified chronic kidney disease (principal); N18.1 Chronic kidney disease, stage 1
CPT/HCPCS: 36415; 80051; 82310; 82565; 84156; 84520

== ENCOUNTER 2020-12-31 11:49 | Day surgery (SDC) | payer OTHER, SELFPAY ==
--- NOTE | 2020-12-30 12:04 | HO.ANESPROP2 ---
Documented by User: Angelica Fabian NP 12/30/20 12:05 HPI - Anesthesia Eval Consult details Narrative: 55yo M for Upper Endoscopy and Colonoscopy COUNT INCLUDES THE [facility] Past Medical History Medical History Back problem Diabetes Gout Heart attack High cholesterol HTN (hypertension) Surgical History Surgical History Hx of colonoscopy Social History Social History Patient Tobacco Use Status: Never used Tobacco Use of substances other than those prescribed or required for medical reasons: No Advance Directives: No Advance Directives Information Provided: Yes Meds Allergies Allergy/AdvReac Type Severity Reaction Status Date / Time iodine Allergy Severe Unknown Verified 12/31/20 12:26 shellfish derived Allergy Severe SWELLING Verified 12/31/20 12:26 Primatene Asthma Allergy Unknown Unknown Uncoded 12/27/20 09:09 sea food Allergy Unknown Swelling Uncoded 12/27/20 09:09 Home Medications Medication Instructions Recorded Confirmed Last Taken Type allopurinol 12/27/20 Unknown History atorvastatin 20 mg tablet 1 tab PO DAILY 12/27/20 12/27/20 Unknown History enalapril maleate 2.5 mg tablet 0.5 tab PO BEDTIME 12/27/20 12/27/20 Unknown History flaxseed oil 12/27/20 Unknown History magnesium 12/27/20 Unknown History metformin 500 mg tablet,extended mg PO 12/27/20 Unknown History release 24 hr tamsulosin 0.4 mg capsule 0.4 mg PO DAILY 12/27/20 12/27/20 Unknown History Exam Exam Date and Time: December 30, 2020 1204 Pertinent Lab Results Pertinent Lab Results: Laboratory Tests 11/17/20 12/14/20 10:50 07:40 WBC 7.6 Hgb 14.9 Hct 45.3 Plt Count 245 Sodium 141 Potassium 4.1 Chloride 102 Carbon Dioxide 31 H BUN 18 H Creatinine 1.00 Narrative Narrative: EKG 10/2020 Vent. Rate : 071 BPM ? ? Atrial Rate : 071 BPM ?? P-R Int : 224 ms? QRS Dur : 104 ms ? ? QT Int : 392 ms ? ? ? P-R-T Axes : 047 -46 033 degrees ?? QTc Int : 425 ms ? 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) Abnormal ECG When compared with ECG of 31-JAN-2018 03:11, Borderline criteria for Anterior infarct are no longer Present Assessment and Plan Assessment Anesthesia Assessment: Chart Reviewed Documented by User: Delmy King MD 12/31/20 12:48 PMFSH Past Medical History Medical History Back problem Diabetes Gout Heart attack High cholesterol HTN (hypertension) Surgical History Surgical History Hx of colonoscopy History of Problems with Anesthesia: No Social History Social History Patient Tobacco Use Status: Never used Tobacco Use of substances other than those prescribed or required for medical reasons: No Advance Directives: No Advance Directives Information Provided: Yes Meds Allergies Allergy/AdvReac Type Severity Reaction Status Date / Time iodine Allergy Severe Unknown Verified 12/31/20 12:26 shellfish derived Allergy Severe SWELLING Verified 12/31/20 12:26 Primatene Asthma Allergy Unknown Unknown Uncoded 12/27/20 09:09 sea food Allergy Unknown Swelling Uncoded 12/27/20 09:09 Home Medications Medication Instructions Recorded Confirmed Last Taken Type allopurinol 12/27/20 Unknown History atorvastatin 20 mg tablet 1 tab PO DAILY 12/27/20 12/27/20 Unknown History enalapril maleate 2.5 mg tablet 0.5 tab PO BEDTIME 12/27/20 12/27/20 Unknown History flaxseed oil 12/27/20 Unknown History magnesium 12/27/20 Unknown History metformin 500 mg tablet,extended mg PO 12/27/20 Unknown History release 24 hr tamsulosin 0.4 mg capsule 0.4 mg PO DAILY 12/27/20 12/27/20 Unknown History Exam Airway Mallampati Class: I TM Dist: >3cm Neck ROM: Full Loose/Missing/Broken Teeth: No Heart: RRR Lungs: CTA Assessment and Plan Assessment Anesthesia Assessment: Anesthesia Plan Discussed Final Anesthetic Review History of Problems with Anesthesia: No NPO: Yes ASA Class: II Final Preanesthetic Review: Meds/Allgs Chart Reviewed, Consent Obtained/Reviewed and Anes Risks/Benef Reviewed Patient Risk: Low Procedure Risk: Intermediate Anesthetic Plan Anesthetic Plan: MAC: Disposition: Standard PACU
[2020-12-31 12:02] VITALS: BP 138/88; PULSE 100; RESP 17; TEMP 36.8; O2SAT 97; BMI 21.6; BMI 22.0
[2020-12-31 12:22] LABS: Glucose, Whole Blood 109 mg/dL (60-115)
[2020-12-31] MEDS: Lactated Ringers 1,000 ML 100 ML IVCONT (12:27)
[2020-12-31 14:41] VITALS: BP 104/63; PULSE 107; RESP 18; TEMP 36.3; O2SAT 96
--- NOTE | 2020-12-31 14:50 | P.BOP_ITS ---
Brief Operative Note Date of Service: 12/31/20 Pre-op diagnosis: Change in Bowel habits, Weight loss Post-op diagnosis: other (Hiatal hernia, GERD, Minimal gastritis, Diverticulosis) Procedure: EGD with biopsies, Colonoscopy to the cecum and TI Surgeon: Gamaliel Hudson Anesthesia: MAC Was an Wool Washing Machine Operator used for this Procedure?: No Estimated blood loss (mL): 3.0 Pathology: other (A. descending duodenum B. Gastric antrum C. EG Junction at 36cm) Condition: stable Disposition: PACU
[2020-12-31 14:57] VITALS: BP 122/78; PULSE 76; RESP 16; TEMP 36.3; O2SAT 96
--- NOTE | 2021-01-01 01:54 | OP_ITS ---
SURGEON: Gamaliel Hudson MD INDICATIONS: The patient presents for evaluation of change in bowel habits, weight loss, and some abdominal discomfort. Full consent was obtained from him for this, including risks of bleeding and perforation. PREOPERATIVE DIAGNOSIS: POSTOPERATIVE DIAGNOSIS: PROCEDURE PERFORMED: ESTIMATED BLOOD LOSS: COMPLICATIONS: ANESTHESIA: Medication used, monitored anesthesia care. ASSISTANTS: SPECIMENS: PREOPERATIVE DIAGNOSES: Change in bowel habits, abdominal discomfort, and weight loss. POSTOPERATIVE DIAGNOSES: Change in bowel habits, abdominal discomfort, and weight loss, small hiatal hernia, changes of gastroesophageal reflux, rule out Elias's esophagus, minimal gastritis, rule out celiac disease, mild diverticulosis, internal hemorrhoids. PROCEDURES PERFORMED: Esophagogastroduodenoscopy with biopsies and colonoscopy to cecum and terminal ileum. DESCRIPTION OF PROCEDURE: The patient was placed in the left lateral decubitus position. The Olympus video gastroscope was passed in the posterior oropharynx and upper esophagus under direct vision. The scope was passed slowly into the distal esophagus. The gastroesophageal junction appeared at 36 cm. There was some slight irregularity consistent with reflux, but no esophagitis. There was some slightly irregular areas that may have represented Elias's esophagus, and biopsies were obtained. There was a small hiatal hernia. The scope was advanced to pylorus, and the duodenum was cannulated to the descending portion. The duodenum including the bulb appeared normal without mass or ulceration. Biopsies were obtained from the second and third portions of duodenum. The scope was withdrawn back to the stomach. The gastric antrum had some minimal areas of erythema and edema, but no erosions or ulceration. There was good peristalsis. Biopsies were obtained. The scope was retroflexed visualizing the proximal stomach carefully, which appeared normal, without any sign of mass or ulceration. Scope was straightened and withdrawn back to the esophagus. Proximal to the EG junction, the esophageal mucosa appeared normal. The scope was withdrawn from the patient. He was turned around for the colonoscopy. The digital rectal exam revealed no abnormalities. The Olympus video pediatric colonoscope was entered into the rectum and advanced easily to the cecum. Once in the cecum, I did identify normal-appearing cecal pouch with appendiceal orifice and a normal-appearing ileocecal valve. The terminal ileum was cannulated and it appeared normal. The scope was withdrawn back in the colon. The entire cecum and ileocecal valve appeared normal. The scope was slowly withdrawn assessing all mucosal surfaces carefully. Preparation was excellent. I did not visualize any sign of polyps, colitis, or angiodysplasia. There was a mild amount of sigmoid diverticulosis. In the rectum, scope was retroflexed visualizing some small internal hemorrhoids, but no other pathology. The rectal mucosa appeared normal. Scope was straightened and withdrawn from the patient. He tolerated both procedures well and was returned to the recovery area in stable condition. IMPRESSION: 1. Small hiatal hernia, gastroesophageal reflux, rule out Elias's esophagus. 2. Rule out celiac disease. 3. Minimal gastritis. 4. Diverticulosis. 5. Internal hemorrhoids. PLAN: The results of biopsy will be checked. At this point, he is not really having any significant acid-related upper GI complaints, and I will therefore hold off on starting him on any medication for that. He does report that in fact he is doing much better after his Trulicity medication was stopped, and his GI symptoms have greatly improved. I would recommend a repeat colonoscopy in 10 years for further screening given the negative exam and no family history. I did recommend he see me in 2 to 3 months for followup visit as well. This has been discussed with his . MD CAROLEE Coffey/HARRISON / [phone]
== END 2020-12-31 15:30 | disposition home or self-care (01) ==
PROVIDERS: PCP Internal Medicine; Visit Provider Internal Medicine
PROC: (CPT 45378; principal; 2020-12-31 13:00)
DX: R19.4 Change in bowel habit (principal); K57.30 Diverticulosis of large intestine without perforation or abscess without bleeding; K64.8 Other hemorrhoids; R10.9 Unspecified abdominal pain; R63.4 Abnormal weight loss; K21.9 Gastro-esophageal reflux disease without esophagitis; K29.60 Other gastritis without bleeding; K44.9 Diaphragmatic hernia without obstruction or gangrene; E78.00 Pure hypercholesterolemia, unspecified; I10 Essential (primary) hypertension; E11.9 Type 2 diabetes mellitus without complications; Z79.84 Long term (current) use of oral hypoglycemic drugs; Z79.899 Other long term (current) drug therapy
CPT/HCPCS: 45378; 43239; 82947; 88305; 88342

== ENCOUNTER 2021-03-03 07:45 | Outpatient (REF) | payer OTHER, SELFPAY ==
[2021-03-03 08:57] LABS: Estimated Average Glucose 114 mg/dL; Hemoglobin A1c % 5.6 %
[2021-03-03 09:04] LABS: Anion Gap 14 (12-20); Blood Urea Nitrogen 19 mg/dL (9-16); Calcium 10.1 mg/dL (8.4-10.2); Carbon Dioxide 29 mmol/L (22-29); Chloride 104 mmol/L (96-108); Estimated Glomerular Filt Rate > 60; Glucose Random 113 mg/dL (60-115); Potassium 4.6 mmol/L (3.3-5.1); Sodium 142 mmol/L (135-145)
== END 2021-03-03 07:46 | disposition home or self-care (01) ==
LOC: HO.LAB 07:45
PROVIDERS: PCP Internal Medicine; Visit Provider Internal Medicine
DX: E11.9 Type 2 diabetes mellitus without complications (principal); I10 Essential (primary) hypertension
CPT/HCPCS: 36415; 80048; 83036

== ENCOUNTER → 2021-07-07 09:22 | Outpatient (BNVA) | payer OTHER, SELFPAY | PROVIDERS: PCP Internal Medicine | DX: R35.0 Frequency of micturition (principal) | CPT/HCPCS: 51798 ==

== ENCOUNTER 2021-11-07 11:13 | Outpatient (REF) | payer OTHER, SELFPAY ==
[2021-11-07 13:09] LABS: Appearance Urine Clear; Color Urine Yellow; Glucose Urine UA Negative (Negative); Leukocyte Esterase Urine Small (1+) (Negative); Nitrite Urine Negative (Negative); PH 5.5 (5.0-9.0); Specific Gravity - Urine 1.025 (1.005-1.025); UMIC TRIGGER UA YES; Urine Blood Small (1+) (Negative); Urine Ketones Trace mg/dL (Negative); Urine Protein Trace mg/dL (Neg-Trace)
[2021-11-07 13:11] LABS: Bacteria Urine None Seen (None Seen); Hyaline Casts Urine 0-2 /LPF (0-2); Squamous Epithelial Cell Urine 0-2 /HPF (0-2)
== END 2021-11-07 11:14 | disposition home or self-care (01) ==
LOC: HO.LAB 11:13
PROVIDERS: PCP Internal Medicine; Visit Provider Urology
DX: R35.0 Frequency of micturition (principal)
CPT/HCPCS: 81001; 87086

== ENCOUNTER 2021-11-15 09:53 | Outpatient (REF) | payer OTHER, SELFPAY ==
[2021-11-15 10:32] LABS: MANUAL DIFF FLAG NO
[2021-11-15 10:33] LABS: Basophils Absolute Auto 0.1 X10*3/uL (0.0-0.2); Basophils Percent Auto 1.2 % (0-2); Eosinophils Absolute Auto 0.2 X10*3/uL (0.0-0.4); Eosinophils Percent Auto 2.7 % (0-4); Hematocrit 46.3 % (42.0-52.0); Hemoglobin 15.3 g/dl (14.0-18.0); Imm Gran Abs Auto 0.09 X10*3/uL (0.00-0.03); Imm Gran Pct Auto 1.2 % (0.0-0.4); Lymphocytes Absolute Auto 1.6 X10*3/uL (1.2-4.9); Mean Corpuscular Hemoglobin 27.2 pg (27.0-33.0); Mean Corpuscular Volume 82.4 fL (80.0-98.0); Mean Platelet Volume 10.7 fL (9.4-12.4); Monocytes Absolute Auto 0.6 X10*3/uL (0.1-1.2); Monocytes Percent Auto 7.8 % (2-11); Neutrophils Absolute Auto 5.1 x10*3/uL (2.0-8.3); Neutrophils Percent Auto 66.1 % (45-73); Platelet Count 278 X10*3/uL (160-400); Red Blood Count 5.62 X10*6/uL (4.60-5.80); Red Cell Distribution Width 13.4 % (11.0-16.0); White Blood Count 7.7 X10*3/uL (4.8-10.8)
[2021-11-15 10:46] LABS: Estimated Average Glucose 126 mg/dL
[2021-11-15 10:51] LABS: Anion Gap 14 (12-20); Blood Urea Nitrogen 26 mg/dL (9-16); Calcium 9.4 mg/dL (8.4-10.2); Carbon Dioxide 29 mmol/L (22-29); Chloride 100 mmol/L (96-108); Estimated Glomerular Filt Rate > 60; Glucose Random 132 mg/dL (60-115); Potassium 4.2 mmol/L (3.3-5.1); Sodium 139 mmol/L (135-145)
[2021-11-15 14:24] LABS: Creatinine Urine 96.67 mg/dL; Microalbumin Urine < 5.0 mg/L
== END 2021-11-15 09:54 | disposition home or self-care (01) ==
LOC: HO.10HDL 09:53
PROVIDERS: Visit Provider Internal Medicine
DX: I10 Essential (primary) hypertension (principal); E11.9 Type 2 diabetes mellitus without complications
CPT/HCPCS: 36415; 80048; 82043; 83036; 85025

== ENCOUNTER 2021-12-26 09:28 | Outpatient (REF) | payer OTHER, SELFPAY ==
[2021-12-26 11:19] LABS: Creatinine Urine 147.25 mg/dL; Protein/Creatinine Ratio, Ur 0.05 (<0.2); Total Protein Urine Random 8 mg/dL (<12)
[2021-12-26 11:43] LABS: Anion Gap 16 (12-20); Blood Urea Nitrogen 16 mg/dL (9-16); Calcium 9.8 mg/dL (8.4-10.2); Carbon Dioxide 26 mmol/L (22-29); Chloride 104 mmol/L (96-108); Estimated Glomerular Filt Rate > 60; Potassium 4.6 mmol/L (3.3-5.1); Sodium 141 mmol/L (135-145)
== END 2021-12-26 09:29 | disposition home or self-care (01) ==
LOC: HO.LAB 09:28
PROVIDERS: PCP Internal Medicine; Visit Provider Internal Medicine Nephrology
DX: I10 Essential (primary) hypertension (principal)
CPT/HCPCS: 36415; 80051; 82310; 82565; 84156; 84520

== ENCOUNTER → 2022-01-10 13:29 | Outpatient (BNVA) | payer OTHER, SELFPAY | PROVIDERS: PCP Internal Medicine; Visit Provider Urology | DX: R35.0 Frequency of micturition (principal); N41.9 Inflammatory disease of prostate, unspecified; N52.1 Erectile dysfunction due to diseases classified elsewhere; E11.69 Type 2 diabetes mellitus with other specified complication | CPT/HCPCS: 51798 ==

== ENCOUNTER 2022-02-24 10:57 | Outpatient (REF) | payer OTHER, SELFPAY ==
[2022-02-24 13:55] LABS: Estimated Average Glucose 128 mg/dL; Hemoglobin A1c % 6.1 %
[2022-02-24 14:07] LABS: Alanine Aminotransferase 23 U/L (0-40); Albumin Level 4.2 g/dL (3.5-5.0); Alkaline Phosphatase 52 U/L (39-117); Anion Gap 14 (12-20); Aspartate Amino Transferase 17 U/L (5-37); Bilirubin Total 0.7 mg/dL (0.0-1.0); Blood Urea Nitrogen 18 mg/dL (9-16); Calcium 9.6 mg/dL (8.4-10.2); Carbon Dioxide 29 mmol/L (22-29); Chloride 103 mmol/L (96-108); Estimated Glomerular Filt Rate > 60; Glucose Random 133 mg/dL (60-115); Potassium 4.1 mmol/L (3.3-5.1); Sodium 142 mmol/L (135-145); Total Protein 6.8 g/dL (6.5-8.0)
[2022-02-24 14:15] LABS: Thyroid Stimulating Hormone 1.19 uIU/mL (0.32-4.0)
== END 2022-02-24 10:58 | disposition home or self-care (01) ==
LOC: HO.10HDL 10:57
PROVIDERS: Visit Provider Internal Medicine
DX: E11.9 Type 2 diabetes mellitus without complications (principal); I10 Essential (primary) hypertension; R63.5 Abnormal weight gain
CPT/HCPCS: 36415; 80053; 83036; 84443

== ENCOUNTER → 2022-04-05 13:59 | Outpatient (BNVA) | payer OTHER, SELFPAY | PROVIDERS: PCP Internal Medicine; Visit Provider Urology | DX: Z13.89 Encounter for screening for other disorder (principal) ==

== ENCOUNTER 2022-07-17 08:14 | Outpatient (REF) | payer OTHER, SELFPAY ==
[2022-07-17 08:51] LABS: Estimated Average Glucose 154 mg/dL
[2022-07-17 09:08] LABS: Anion Gap 14 (12-20); Blood Urea Nitrogen 19 mg/dL (9-16); Calcium 9.1 mg/dL (8.4-10.2); Carbon Dioxide 27 mmol/L (22-29); Chloride 105 mmol/L (96-108); Estimated Glomerular Filt Rate > 60; Glucose Random 234 mg/dL (60-115); Sodium 142 mmol/L (135-145)
== END 2022-07-17 08:15 | disposition home or self-care (01) ==
LOC: HO.LAB 08:14
PROVIDERS: PCP Internal Medicine; Visit Provider Internal Medicine
DX: I10 Essential (primary) hypertension (principal); E11.9 Type 2 diabetes mellitus without complications
CPT/HCPCS: 36415; 80048; 83036

== ENCOUNTER 2022-10-12 09:29 | Outpatient (AMB) | payer OTHER, SELFPAY ==
--- NOTE | 2022-10-12 09:33 | A.OFFVIS_ITS ---
Intake Intake Visit Reasons: 6m follow up/PVR Intake Note: Patient is present for Follow Up PVR Urology Med: Tadalafil Antibiotic Allergy: None Blood Thinner: None [facility]acy: [facility] PVR: 0 Allergies iodine Allergy (Severe, Verified 10/12/22 09:34) Unknown shellfish derived Allergy (Severe, Verified 10/12/22 09:34) SWELLING Primatene Asthma Allergy (Unknown, Uncoded 10/12/22 09:34) Unknown sea food Allergy (Unknown, Uncoded 10/12/22 09:34) Swelling HPI HPI Comments History of Present Illness Details Flash is a pleasant male. He is a patient of Dr. Dickey. He is seen for the following urologic conditions - prostatitis - bladder outlet obstruction - erectile dysfunction in the setting of diabetes Follow-up evaluation Continued good response to daily tadalafil Helpful for both erections and bladder function Continue with interval surveillance Discussed diabetic control with extended scooby phenomena, nocturnal management. 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 Bladder outlet obstruction Turned out he had chronic prostatitis Did well with medications Had responded well to Flomax but had side effects Current medications - tadalafil Erectile dysfunction setting of diabetes Good response to tadalafil 5 mg daily Reports prior PSA in normal range PFSH Medical History Back problem Diabetes Gout Heart attack High cholesterol HTN (hypertension) Urinary frequency Surgical History Hx of colonoscopy Social History Patient Tobacco Use Status: Never used Tobacco Review of Systems Const Denies chills and Denies fever(s) Card Reports no additional complaints and Denies syncope Resp Denies cough GI Denies abdominal pain and Denies heartburn Reports as per HPI and Denies change in libido Neuro Denies syncope Psych Denies change in libido Endo Denies change in libido Physical Exam Const General: cooperative, healthy appearing, comfortable and no acute distress Orientation/consciousness: patient oriented x3 HEENT Face and sinus: Yes normal facial exam Mouth: moist mucous membranes Neck Neck: Yes normal visual inspection, Yes full ROM and Yes trachea midline Chest Chest palpation & inspection: normal inspection of the chest Resp Effort & Inspection: normal respiratory effort, able to speak in complete sentences and no respiratory distress GI Inspection: Yes normal to inspection Back/Spine/Pelvis Cervical Spine: normal cervical lordosis Thoracic/Lumbar Spine: thoracic and lumbar spine normal to inspection Skin General skin exam: no rashes or lesions noted Neuro General: patient oriented x3, gait normal, tone normal and moves all extremities Extrem General: Yes normal to inspection and Yes capillary refill normal Office Procedures Post Void Residual Post Residual Void Post Void Residual (PVR): 0 [id number] Void Residual by ultrasound Results AMB Urinalysis, Automated UA Leukoctes 0 Shen/uL Last Edit by Carlie Claros [facility] TO [facility] on 10/12/22 09:39 UA Nitrite Negative Last Edit by Carlie Claros [facility] TO [facility] on 10/12/22 09:39 UA Urobilinogen 0.2 mg/dL Last Edit by Carlie Claros A on 10/12/22 09:3 9 UA Protein 0 mg/dL Last Edit by Carlie Claros [facility] TO [facility] on 10/12/22 09:39 UA pH 6.0 Last Edit by Carlie Claros [facility] TO [facility] on 10/12/22 09:39 UA Blood 0 Daniel/uL Last Edit by Carlie Claros [facility] TO [facility] on 10/12/22 09:39 UA Specific Tyronza 1.020 Last Edit by Carlie Claros [facility] TO [facility] on 10/12/22 09: 39 UA Ketone Negative Last Edit by Carlie Claros [facility] TO [facility] on 10/12/22 09:39 UA Bilirubin 0 mg/dL Last Edit by Carlie Claros [facility] TO [facility] on 10/12/22 09:39 UA Glucose 1000 mg/dL Last Edit by Carlie Claros [facility] TO [facility] on 10/12/22 09:39 Results Reviewed Results Reviewed: Laboratory Last Values Urine pH (Auto) 6.0 10/12/22 09:34 Specific Tyronza (Auto) 1.020 10/12/22 09:34 Urine Protein (Auto) 0 mg/dL 10/12/22 09:34 Glucose (UA)(Auto) 1000 mg/dL 10/12/22 09:34 Urine Ketones (Auto) Negative 10/12/22 09:34 Urine Blood (Auto) 0 Daniel/uL 10/12/22 09:34 Urine Nitrite (Auto) Negative 10/12/22 09:34 Urine Bilirubin (Auto) 0 mg/dL 10/12/22 09:34 Urine Urobilinogen (Auto) 0.2 mg/dL 10/12/22 09:34 Leukocyte Esterase (Auto) 0 Shen/uL 10/12/22 09:34 Assessment & Plan Assessment & Plan (1) Erectile dysfunction associated with type 2 diabetes mellitus: Code(s): E11.69 - Type 2 diabetes mellitus with other specified complication; N52.1 - Erectile dysfunction due to diseases classified elsewhere (2) Bladder outlet obstruction: Code(s): N32.0 - Bladder-neck obstruction Plan Six month follow-up Orders: Orders AMB Urinalysis Automated Today Z13.9 - Encounter for screening, unspecified AMB Post Void Residual by ultrasound Today R35.0 - Frequency of micturition Medications: Refilled tadalafil 5 mg PO DAILY 90 tabs 1RF sexual activity 90 days E11.69 - Type 2 diabetes mellitus with other specified complication, N52.1 - Erectile dysfunction due to diseases classified elsewhere Patient Instructions: Imaging studies, laboratory and physical exam results were discussed and reviewed in detail. No major barriers to patient understanding were identified. An opportunity to ask questions regarding the treatment plan was provided. All questions were answered. The patient expressed understanding and agreement with the above treatment plan. The patient is aware they should contact our office by phone for worsening of their current condition or the appearance of new urologic symptoms. Compliance is encouraged with any medications and followup testing that is ordered. It is a privilege to participate in the urologic care of your patient. If you have any questions or concerns regarding treatment for the above conditions, or other urologic issues, please do not hesitate to contact me. The office telephone contact is [phone]. This note is constructed using voice recognition software. While every effort has been made to ensure accuracy container shop welder errors may have been included. Yours sincerely, Dr Minh Porras MD, [facility] - Urology Providers of Expert, Compassionate Care for the Genitourinary System Coding Level of Care Code Est Pt Level 3 (15748) Diagnoses Erectile dysfunction associated with type 2 diabetes mellitus E11.69; N52.1 Bladder outlet obstruction N32.0 CPT Codes Post Residual Void - PVR CPT Code: 36325-Byuy Void Residual by ultrasound ([id number])
== END 2022-10-12 10:09 | disposition home or self-care (01) ==
PROVIDERS: PCP Internal Medicine; Visit Provider Urology
DX: E11.69 Type 2 diabetes mellitus with other specified complication (principal); N52.1 Erectile dysfunction due to diseases classified elsewhere; N32.0 Bladder-neck obstruction; Z13.9 Encounter for screening, unspecified
CPT/HCPCS: 99213

== ENCOUNTER → 2022-10-12 09:29 | Outpatient (BNVA) | payer OTHER, SELFPAY | PROVIDERS: Visit Provider Urology | DX: R35.0 Frequency of micturition (principal); N32.0 Bladder-neck obstruction; N41.0 Acute prostatitis; E11.69 Type 2 diabetes mellitus with other specified complication; N52.1 Erectile dysfunction due to diseases classified elsewhere; Z79.899 Other long term (current) drug therapy | CPT/HCPCS: 51798; 81003 ==

== ENCOUNTER 2022-11-10 07:37 | Outpatient (REF) | payer OTHER, SELFPAY ==
[2022-11-10 07:52] LABS: MANUAL DIFF FLAG NO
[2022-11-10 08:20] LABS: Basophils Absolute Auto 0.1 X10*3/uL (0.0-0.2); Basophils Percent Auto 1.1 % (0-2); Eosinophils Absolute Auto 0.2 X10*3/uL (0.0-0.4); Eosinophils Percent Auto 2.7 % (0-4); Hematocrit 46.5 % (42.0-52.0); Hemoglobin 15.2 g/dl (14.0-18.0); Imm Gran Abs Auto 0.03 X10*3/uL (0.00-0.03); Imm Gran Pct Auto 0.5 % (0.0-0.4); Lymphocytes Absolute Auto 1.5 X10*3/uL (1.2-4.9); Lymphocytes Percent Auto 24.2 % (20-40); Mean Corpuscular HGB Conc 32.7 g/dl (31.0-36.0); Mean Corpuscular Hemoglobin 26.4 pg (27.0-33.0); Mean Corpuscular Volume 80.7 fL (80.0-98.0); Mean Platelet Volume 10.7 fL (9.4-12.4); Monocytes Absolute Auto 0.5 X10*3/uL (0.1-1.2); Monocytes Percent Auto 8.6 % (2-11); Neutrophils Percent Auto 62.9 % (45-73); Platelet Count 201 X10*3/uL (160-400); Red Blood Count 5.76 X10*6/uL (4.60-5.80); Red Cell Distribution Width 14.1 % (11.0-16.0); White Blood Count 6.3 X10*3/uL (4.8-10.8)
[2022-11-10 08:26] LABS: Estimated Average Glucose 177 mg/dL; Hemoglobin A1c % 7.8 % (<6.0)
[2022-11-10 08:42] LABS: Alanine Aminotransferase 23 U/L (0-40); Albumin Level 4.1 g/dL (3.5-5.0); Alkaline Phosphatase 56 U/L (39-117); Anion Gap 16 (12-20); Aspartate Amino Transferase 17 U/L (5-37); Bilirubin Total 0.7 mg/dL (0.0-1.0); Blood Urea Nitrogen 17 mg/dL (9-16); Calcium 9.5 mg/dL (8.4-10.2); Carbon Dioxide 25 mmol/L (22-29); Chloride 103 mmol/L (96-108); Cholesterol 156 mg/dL (<200); Estimated Glomerular Filt Rate > 60; Glucose Fasting 207 mg/dL (60-99); HDL Cholesterol 40 mg/dL (>40); LDL Cholesterol Calculated 97 mg/dL (<100); Potassium 3.9 mmol/L (3.3-5.1); Sodium 140 mmol/L (135-145); Triglycerides 99 mg/dL (<150)
[2022-11-10 09:10] LABS: Prostate Specific Antigen 0.91 ng/mL (<0.05-4.0)
[2022-11-10 10:42] LABS: Creatinine Urine 154.45 mg/dL; Microalbum/Creatinine Ratio Ur 3.8 ug/mg cr (<30)
== END 2022-11-10 07:38 | disposition home or self-care (01) ==
LOC: HO.LAB 07:37
PROVIDERS: PCP Internal Medicine; Visit Provider Internal Medicine
DX: Z12.5 Encounter for screening for malignant neoplasm of prostate (principal); E78.00 Pure hypercholesterolemia, unspecified; E11.9 Type 2 diabetes mellitus without complications; I10 Essential (primary) hypertension
CPT/HCPCS: 36415; 80053; 80061; 82043; 82570; 83036; 84153; 85025

== ENCOUNTER 2023-04-11 08:09 | Outpatient (AMB) | payer OTHER, SELFPAY ==
--- NOTE | 2023-04-11 08:07 | A.OFFVIS_ITS ---
Intake Intake Visit Reasons: 6M Follow Up(ED/Frequency)vm to confirm Intake Note: Patient presents today for a follow-up Meds- Tadalafil, Allergies to Antibiotic- No Known Allergies Blood Thinner- None Technical Assistance Consultant Required: No Accompanied by: Self / Same As Patient Allergies iodine Allergy (Severe, Verified 04/11/23 08:10) Unknown shellfish derived Allergy (Severe, Verified 04/11/23 08:10) SWELLING Primatene Asthma Allergy (Unknown, Uncoded 04/11/23 08:10) Unknown sea food Allergy (Unknown, Uncoded 04/11/23 08:10) Swelling Medication List - Last Reconciled 04/11/23 by Minh Porras MD [allopurinol ] atorvastatin 1 tab PO DAILY enalapril maleate 0.5 tabs PO BEDTIME [flaxseed oil ] hydroxyzine HCl 50 mg PO BEDTIME PRN [magnesium ] metformin 500 mg PO BID naproxen (Naprosyn) 500 mg PO DAILY 30 days sertraline 25 mg PO DAILY tadalafil 5 mg PO DAILY 90 days HPI HPI Comments History of Present Illness Details Flash is a pleasant male. He is a patient of Dr. Dickey. He is seen for the following urologic conditions - prostatitis - bladder outlet obstruction - erectile dysfunction in the setting of diabetes Telemedicine Evaluation 15 min Consultation Codemasters Darcie Video attempted Continued good response to daily tadalafil Helpful for both erections and bladder function Continue with interval surveillance - q.6 months Discussed diabetic control with extended scooby phenomena, nocturnal management. 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 Turned out he had chronic prostatitis Did well with medications Had responded well to Flomax but had side effects Current medications - tadalafil PSA 11/04 0.9 - only needs to be checked every 2-3 years Erectile dysfunction setting of diabetes Good response to tadalafil 5 mg daily Diabetes - HbA1c 11/04 7.8% Reports prior PSA in normal range PFSH Medical History Urinary frequency Gout Back problem Heart attack High cholesterol HTN (hypertension) Diabetes Surgical History Hx of colonoscopy Social History Patient Tobacco Use Status: Never used Tobacco Review of Systems Const All systems reviewed & are unremarkable except as noted in HPI and below Reports no additional complaints Resp Reports no additional complaints GI Reports no additional complaints Reports as per HPI Musc Reports no additional complaints Physical Exam Telemedicine evaluation Appropriate responses Regular breathing rate and rhythm HEENT Head: Yes normal to inspection Ears: hearing grossly normal bilaterally Eyes General: appearance normal, both eyes and all related structures Neck Neck: Yes normal visual inspection Chest Chest palpation & inspection: normal inspection of the chest Resp Effort & Inspection: normal respiratory effort and able to speak in complete sentences Assessment & Plan Assessment & Plan (1) Bladder outlet obstruction: Code(s): N32.0 - Bladder-neck obstruction (2) Erectile dysfunction associated with type 2 diabetes mellitus: Code(s): E11.69 - Type 2 diabetes mellitus with other specified complication; N52.1 - Erectile dysfunction due to diseases classified elsewhere Plan Six-month follow-up Medications: Refilled tadalafil 5 mg PO DAILY 90 days 90 tabs 1RF sexual activity E11.69 - Type 2 diabetes mellitus with other specified complication, N52.1 - Erectile dysfunction due to diseases classified elsewhere Patient Instructions: Imaging studies, laboratory and physical exam results were discussed and reviewed in detail. No major barriers to patient understanding were identified. An opportunity to ask questions regarding the treatment plan was provided. All questions were answered. The patient expressed understanding and agreement with the above treatment plan. The patient is aware they should contact our office by phone for worsening of their current condition or the appearance of new urologic symptoms. Compliance is encouraged with any medications and followup testing that is ordered. It is a privilege to participate in the urologic care of your patient. If you have any questions or concerns regarding treatment for the above conditions, or other urologic issues, please do not hesitate to contact me. The office telephone contact is [phone]. This note is constructed using voice recognition software. While every effort steele s been made to ensure accuracy dog breeder errors may have been included. Yours sincerely, Dr Minh Porras MD, [facility] - Urology Providers of Expert, Compassionate Care for the Genitourinary System Telehealth Telehealth Location of provider rendering services: practice address Location of patient: address on file Patient Identification confirmed using: Name, : Yes Telehealth method: video Patient verbally consented to treatment: Yes Patient verbally consented to billing insurance company: Yes Patient informed of any privacy concerns related to visit: Yes Coding Level of Care Code Tele Est Pt Level 3 (16883) Diagnoses Bladder outlet obstruction N32.0 Erectile dysfunction associated with type 2 diabetes mellitus E11.69; N52.1
== END 2023-04-11 09:16 | disposition home or self-care (01) ==
LOC: HO.HUSH 08:10
PROVIDERS: PCP Internal Medicine; Visit Provider Urology
DX: N32.0 Bladder-neck obstruction (principal); E11.69 Type 2 diabetes mellitus with other specified complication; N52.1 Erectile dysfunction due to diseases classified elsewhere
CPT/HCPCS: 99213

== ENCOUNTER → 2023-04-11 08:09 | Outpatient (BNVA) | payer OTHER, SELFPAY | PROVIDERS: PCP Internal Medicine; Visit Provider Urology ==

== ENCOUNTER 2023-04-16 07:48 | Outpatient (REF) | payer OTHER, SELFPAY ==
[2023-04-16 08:07] LABS: MANUAL DIFF FLAG NO
[2023-04-16 08:42] LABS: Basophils Absolute Auto 0.1 X10*3/uL (0.0-0.2); Eosinophils Absolute Auto 0.3 X10*3/uL (0.0-0.4); Eosinophils Percent Auto 3.7 % (0-4); Hematocrit 47.4 % (42.0-52.0); Hemoglobin 15.8 g/dl (14.0-18.0); Imm Gran Abs Auto 0.05 X10*3/uL (0.00-0.03); Imm Gran Pct Auto 0.7 % (0.0-0.4); Lymphocytes Absolute Auto 1.5 X10*3/uL (1.2-4.9); Lymphocytes Percent Auto 20.9 % (20-40); Mean Corpuscular HGB Conc 33.3 g/dl (31.0-36.0); Mean Corpuscular Volume 80.9 fL (80.0-98.0); Mean Platelet Volume 10.9 fL (9.4-12.4); Monocytes Absolute Auto 0.6 X10*3/uL (0.1-1.2); Monocytes Percent Auto 8.1 % (2-11); Neutrophils Absolute Auto 4.6 x10*3/uL (2.0-8.3); Neutrophils Percent Auto 65.6 % (45-73); Platelet Count 205 X10*3/uL (160-400); Red Blood Count 5.86 X10*6/uL (4.60-5.80); Red Cell Distribution Width 13.7 % (11.0-16.0)
[2023-04-16 09:17] LABS: Estimated Average Glucose 269 mg/dL
[2023-04-16 09:27] LABS: Alanine Aminotransferase 21 U/L (0-40); Alkaline Phosphatase 80 U/L (39-117); Anion Gap 15 (12-20); Aspartate Amino Transferase 13 U/L (5-37); Bilirubin Total 0.6 mg/dL (0.0-1.0); Blood Urea Nitrogen 18 mg/dL (9-16); Calcium 9.5 mg/dL (8.4-10.2); Carbon Dioxide 27 mmol/L (22-29); Chloride 100 mmol/L (96-108); Estimated Glomerular Filt Rate > 60; Glucose Random 333 mg/dL (60-115); Potassium 4.3 mmol/L (3.3-5.1); Sodium 138 mmol/L (135-145); Total Protein 6.8 g/dL (6.5-8.0)
[2023-04-16 12:29] LABS: Creatinine Urine 96.66 mg/dL; Microalbum/Creatinine Ratio Ur 5.1 ug/mg cr (<30)
== END 2023-04-16 07:49 | disposition home or self-care (01) ==
LOC: HO.LAB 07:48
PROVIDERS: PCP Internal Medicine; Visit Provider Internal Medicine
DX: I10 Essential (primary) hypertension (principal); E11.9 Type 2 diabetes mellitus without complications; K57.90 Diverticulosis of intestine, part unspecified, without perforation or abscess without bleeding
CPT/HCPCS: 36415; 80053; 82043; 82570; 83036; 85025

== ENCOUNTER 2023-05-22 12:20 | Outpatient (REF) | payer OTHER, SELFPAY ==
[2023-05-22 12:31] LABS: MANUAL DIFF FLAG NO
[2023-05-22 12:58] LABS: Basophils Absolute Auto 0.1 X10*3/uL (0.0-0.2); Basophils Percent Auto 0.8 % (0-2); Eosinophils Absolute Auto 0.1 X10*3/uL (0.0-0.4); Eosinophils Percent Auto 1.3 % (0-4); Hematocrit 49.4 % (42.0-52.0); Hemoglobin 16.3 g/dl (14.0-18.0); Imm Gran Abs Auto 0.07 X10*3/uL (0.00-0.03); Imm Gran Pct Auto 0.8 % (0.0-0.4); Lymphocytes Absolute Auto 1.3 X10*3/uL (1.2-4.9); Mean Corpuscular Hemoglobin 26.6 pg (27.0-33.0); Mean Corpuscular Volume 80.7 fL (80.0-98.0); Mean Platelet Volume 11.1 fL (9.4-12.4); Monocytes Absolute Auto 0.8 X10*3/uL (0.1-1.2); Monocytes Percent Auto 8.8 % (2-11); Neutrophils Absolute Auto 6.3 x10*3/uL (2.0-8.3); Neutrophils Percent Auto 73.3 % (45-73); Platelet Count 232 X10*3/uL (160-400); Red Blood Count 6.12 X10*6/uL (4.60-5.80); Red Cell Distribution Width 14.1 % (11.0-16.0); White Blood Count 8.6 X10*3/uL (4.8-10.8)
[2023-05-22 13:24] LABS: C Reactive Protein 0.27 mg/dL (< or = 0.50); Lactate Dehydrogenase 120 U/L (118-273)
== END 2023-05-22 12:21 | disposition home or self-care (01) ==
LOC: HO.LAB 12:20
PROVIDERS: PCP Internal Medicine; Visit Provider Internal Medicine
DX: I89.0 Lymphedema, not elsewhere classified (principal)
CPT/HCPCS: 36415; 83615; 85025; 86140

== ENCOUNTER 2023-10-10 14:47 | Outpatient (AMB) | payer BC, SELFPAY ==
--- NOTE | 2023-10-10 14:49 | A.OFFVIS_ITS ---
Intake Visit Reasons: 6m follow up Intake Note: Patient is Present for Follow Up Urology Medication: Tadalafil Antibiotic Allergies: None Blood Thinners: None Poultry Hatchery Manager Required: No Allergies iodine Allergy (Severe, Verified 10/10/23 14:49) Unknown shellfish derived Allergy (Severe, Verified 10/10/23 14:49) SWELLING Primatene Asthma Allergy (Unknown, Uncoded 10/10/23 14:49) Unknown sea food Allergy (Unknown, Uncoded 10/10/23 14:49) Swelling HPI Comments Details: Flash is a pleasant male. He is a patient of Dr. Dickey. He is seen for the following urologic conditions - prostatitis - bladder outlet obstruction - erectile dysfunction in the setting of diabetes Telemedicine Evaluation 15 min Consultation [employer] Darcie Video attempted Recent diagnosis with neck cancer About to undergo external beam radiation with possible chemotherapy discussed fatigue Has had loss of diabetic control secondary to stress regarding diagnosis Continued good response to daily tadalafil Helpful for both erections and bladder function Continue with interval surveillance - q6 months Discussed diabetic control with extended scooby phenomena, nocturnal management. 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 Bladder outlet obstruction Turned out he had chronic prostatitis Did well with medications Had responded well to Flomax but had side effects Current medications - tadalafil PSA 11/04 0.9 - only needs to be checked every 2-3 years Erectile dysfunction setting of diabetes Good response to tadalafil 5 mg daily Diabetes - HbA1c 11/04 7.8%, 05/05 11% Reports prior PSA in normal range PFSH Medical History Urinary frequency Gout Back problem Heart attack High cholesterol HTN (hypertension) Diabetes Surgical History Hx of colonoscopy Social History Patient Tobacco Use Status: Never used Tobacco Review of Systems Const All systems reviewed & are unremarkable except as noted in HPI and below Reports no additional complaints Resp Reports no additional complaints GI Reports no additional complaints Reports as per HPI Musc Reports no additional complaints Physical Exam Telemedicine evaluation Appropriate responses Regular breathing rate and rhythm HEENT Head: Yes normal to inspection Ears: hearing grossly normal bilaterally Eyes General: appearance normal, both eyes and all related structures Neck Neck: Yes normal visual inspection Chest Chest palpation & inspection: normal inspection of the chest Resp Effort & Inspection: normal respiratory effort and able to speak in complete sentences Telehealth Telehealth Location of provider rendering services: practice address Location of patient: address on file Patient Identification confirmed using: Name, : Yes Telehealth method: video Patient verbally consented to treatment: Yes Patient verbally consented to billing insurance company: Yes Patient informed of any privacy concerns related to visit: Yes Assessment & Plan Assessment & Plan (1) Bladder outlet obstruction: Code(s): N32.0 - Bladder-neck obstruction Category: Medical (2) Erectile dysfunction associated with type 2 diabetes mellitus: Code(s): E11.69 - Type 2 diabetes mellitus with other specified complication; N52.1 - Erectile dysfunction due to diseases classified elsewhere Category: Medical Plan Six-month follow-up office Medications: Refilled tadalafil 5 mg PO DAILY 90 days 90 tabs 1RF sexual activity E11.69 - Type 2 diabetes mellitus with other specified complication, N52.1 - Erectile dysfunction due to diseases classified elsewhere Patient Instructions: Imaging studies, laboratory and physical exam results were discussed and reviewed in detail. No major barriers to patient understanding were identified. An opportunity to ask questions regarding the treatment plan was provided. All questions were answered. The patient expressed understanding and agreement with the above treatment plan. The patient is aware they should contact our office by phone for worsening of their current condition or the appearance of new urologic symptoms. Compliance is encouraged with any medications and followup testing that is ordered. It is a privilege to participate in the urologic care of your patient. If you have any questions or concerns regarding treatment for the above conditions, or other urologic issues, please do not hesitate to contact me. The office telephone contact is [phone]. This note is constructed using voice recognition software. While every effort has been made to ensure accuracy supervisor newspaper deliveries errors may have been included. Yours sincerely, Dr Minh Porras MD, [facility] - Urology Providers of Expert, Compassionate Care for the Genitourinary System Coding Level of Care Code Tele Est Pt Level 3 (40952) Diagnoses Bladder outlet obstruction N32.0 Erectile dysfunction associated with type 2 diabetes mellitus E11.69; N52.1
== END 2023-10-10 15:15 | disposition home or self-care (01) ==
LOC: HO.HUSH 14:47
PROVIDERS: PCP Internal Medicine; Visit Provider Urology
DX: N32.0 Bladder-neck obstruction (principal); E11.69 Type 2 diabetes mellitus with other specified complication; N52.1 Erectile dysfunction due to diseases classified elsewhere
CPT/HCPCS: 99213

== ENCOUNTER → 2023-10-10 14:47 | Outpatient (BNVA) | payer BC, SELFPAY | PROVIDERS: PCP Internal Medicine; Visit Provider Urology ==

== ENCOUNTER 2024-04-11 11:31 | Outpatient (AMB) | payer BC, SELFPAY ==
--- NOTE | 2024-04-11 11:39 | MHC.OFFVIS ---
Intake Visit Reasons: 6M PVR Intake Note: Pt presents to the office today for a 6 month follow up/PVR. PVR: 0mL Allergies iodine Allergy (Severe, Verified 04/11/24 11:39) Unknown shellfish derived Allergy (Severe, Verified 04/11/24 11:39) SWELLING Primatene Asthma Allergy (Unknown, Uncoded 04/11/24 11:39) Unknown sea food Allergy (Unknown, Uncoded 04/11/24 11:39) Swelling HPI Comments Details: Flash is a pleasant male. He is a patient of Dr. Dickey. He is seen for the following urologic conditions - prostatitis - bladder outlet obstruction - erectile dysfunction in the setting of diabetes Six-month follow-up 0 cc PVR Prior diagnosis with neck cancer - treated with XRT Continued good response to daily tadalafil Helpful for both erections and bladder function Continue with interval surveillance - q6 months Discussed diabetic control with extended scooby phenomena, nocturnal management. 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 Bladder outlet obstruction Turned out he had chronic prostatitis Did well with medications Had responded well to Flomax but had side effects Current medications - tadalafil PSA 11/04 0.9 - only needs to be checked every 2-3 years Erectile dysfunction setting of diabetes Good response to tadalafil 5 mg daily Diabetes - HbA1c 11/04 7.8%, 05/05 11% Reports prior PSA in normal range PFSH Medical History Urinary frequency Gout Back problem Heart attack High cholesterol HTN (hypertension) Diabetes Surgical History Hx of colonoscopy Social History Patient Tobacco Use Status: Never used Tobacco Review of Systems Const Denies chills and Denies fever(s) Card Reports no additional complaints and Denies syncope Resp Denies cough GI Denies abdominal pain and Denies heartburn Reports as per HPI and Denies change in libido Neuro Denies syncope Psych Denies change in libido Endo Denies change in libido Physical Exam Const General: cooperative, healthy appearing, comfortable and no acute distress Orientation/consciousness: patient oriented x3 HEENT Face and sinus: Yes normal facial exam Mouth: moist mucous membranes Neck Neck: Yes normal visual inspection, Yes full ROM and Yes trachea midline Chest Chest palpation & inspection: normal inspection of the chest Resp Effort & Inspection: normal respiratory effort, able to speak in complete sentences and no respiratory distress GI Inspection: Yes normal to inspection Back/Spine/Pelvis Cervical Spine: normal cervical lordosis Thoracic/Lumbar Spine: thoracic and lumbar spine normal to inspection Skin General skin exam: no rashes or lesions noted Neuro General: patient oriented x3, gait normal, tone normal and moves all extremities Extrem General: Yes normal to inspection and Yes capillary refill normal Office Procedures Post Void Residual Post Residual Void Post Void Residual (PVR): 0 62052-Gvrm Void Residual by ultrasound Assessment & Plan Assessment & Plan (1) Urinary frequency: Code(s): R35.0 - Frequency of micturition Category: Medical (2) Erectile dysfunction associated with type 2 diabetes mellitus: Code(s): E11.69 - Type 2 diabetes mellitus with other specified complication; N52.1 - Erectile dysfunction due to diseases classified elsewhere Category: Medical (3) Bladder outlet obstruction: Code(s): N32.0 - Bladder-neck obstruction Category: Medical Plan Six-month follow-up tele Orders: Orders AMB Post Void Residual by ultrasound Today N32.0 - Bladder-neck obstruction Patient Instructions: This note is constructed using voice recognition software. While every effort has been made to ensure accuracy medical engineer errors may have been included. Imaging studies, laboratory and physical exam results were discussed and reviewed in detail. No major barriers to patient understanding were identified. An opportunity to ask questions regarding the treatment plan was provided. All questions were answered. The patient expressed understanding and agreement with the above treatment plan. The patient is aware they should contact our office by phone for worsening of their current condition or the appearance of new urologic symptoms. Compliance is encouraged with any medications and followup testing that is ordered. It is a privilege to participate in the urologic care of your patient. If you have any questions or concerns regarding treatment for the above conditions, or other urologic issues, please do not hesitate to contact me. The office telephone contact is [phone]. Sincerely, Dr Minh Porras MD, [facility] - Urology Compassionate Specialist Care for the Genitourinary System Coding Level of Care Code Est Pt Level 3 (38821) Diagnoses Urinary frequency R35.0 Erectile dysfunction associated with type 2 diabetes mellitus E11.69; N52.1 Bladder outlet obstruction N32.0 CPT Codes Post Residual Void - PVR CPT Code: 51624-Wnrt Void Residual by ultrasound ([id number])
--- OUTSIDE RECORDS SUMMARY | 2024-04-11 13:47 | XMS_ITS | Clinical Summary ---
Author Organization [facility] Address [address] [address] [place] [address] Phone Care Team Providers Care Data Entry Supervisor Name Role Phone Natan Dickey MD Primary Care Provider [phone] Allergies Active Allergy Reactions Criticality Noted Date Comments Iodine Other (see comments) 05/04/2021 Shellfish Allergy Other (see comments) 05/05/19 Medications atorvastatin (LIPITOR) 20 MG tablet Take 1 tablet by mouth 1 (one) time each day 04/23/2020 Active enalapril (VASOTEC) 5 MG tablet 12/28/2021 Active Januvia 50 MG tablet Take 50 mg by mouth 1 (one) time each day 12/17/2022 Active sertraline (ZOLOFT) 25 MG tablet Take 25 mg by mouth 1 (one) time each day 12/09/2022 Active tadalafil (CIALIS) 5 MG tablet TAKE ONE TABLET BY MOUTH EVERY DAY FOR SEXUAL ACTIVITY 12/19/2022 Active Active Problems Problem Noted Date Diagnosed Date Chronic kidney disease stage 2 12/28/2021 Constipation 09/06/2021 Diverticulosis of colon 09/06/2021 Encounter for other preprocedural examination Esophageal reflux finding 09/06/2021 Gastritis 09/06/2021 Screening for malignant neoplasm of rectum 09/06 Weight loss 09/06/2021 Hypertension 12/17/2020 Essential (primary) hypertension 04/28/2020 Serum creatinine above reference range Acute nontraumatic kidney injury 04/28/2020 Family History Medical History Relation Comments Hypertension Father Diabetes Mother Hypertension Mother Relation Status Comments Father Mother Social History Tobacco Use Types Packs/Day Years Used Date Smoking Tobacco: Never Smokeless Tobacco: Never Tobacco Cessation:Counseling Given: Not Answered Alcohol Use Standard Drinks/Week Comments Never 0 (1 standard drink = 0.6 oz pur e alcohol) Sex and Gender Information Value Date Recorded Sex Assigned at Not on file Legal Sex Male 4:59 PM EST Gender Identity Not on file Sexual Orientation Not on file Last Filed Vital Signs Vital Sign Reading Time Taken Comments Blood Pressure 152/78 01/17/2023 2:54 PM EST Pulse 88 01/17/2023 2:54 PM EST Temperature - - Respiratory Rate - - Oxygen Saturation 98% 12/28/2021 2:16 PM EST Inhaled Oxygen Concentration - - Weight 88.5 kg (195 lb) 01/17/2023 2:54 PM EST Height - - Body Mass Index - - Plan of Treatment Health Maintenance Due Date Last Done Comments Pneumococcal Vaccine: Pediat rics (0 to 5 Years) and At-Risk Patients (6 to 64 Years) (1 of 2 - PCV) 1970 Hepatitis B Vaccine (1 of 3 - 19+ 3-dose series) 07/22 Colorectal Cancer Screening: Annual FOBT 2013 Colorectal Cancer Screening: Colonoscopy 2013 Colorectal Cancer Screening: Sigmoidoscopy 2013 Influenza Vaccine (#1) 2023 Insurance [place] [id number] [facility] Care Teams Data Entry Supervisor Relationship Specialty Start Date End Date Natan Dickey MD [address] [place] [address] [id number] [place] PCP - General Internal Medicine 04/28/20
--- OUTSIDE RECORDS SUMMARY | 2024-04-11 13:47 | XMS_ITS | Data Portability ---
Author Organization [place] - [facility], Allergy Address [address] [place] [phone] Care Team Providers Care Color Drum Worker Name Role Phone MARLON OFELIA Primary Care Provider OFELIA MASON Referring Provider [phone] Assessment No assessment recorded. Plan of Treatment Reminders Order Date Submit Date Provider Last Modified By Organization Details Last Modified Time Details Appointments Establish ed 30 2024 01:00P M TARIQ Kendall MD Not available Not available Not available Lab None recorded. Referral None recorded. Procedures None recorded. Surgeries laryngosc opy, direct operative with operating microscop e or telescope with biopsy (SURG) 2023 024 [email or web address] Not available 09/05/2023 06:42:03 Imaging None recorded. Medication Orders None recorded. Patient TargetsNo targets recorded. Patient InstructionsNo instructions recorded. Reason for Referral None Reported. Results Created Date Observation Date Name Description Value Unit Range Abnormal Flag Note LastModifiedBy Organization Detail LastModifiedTime 09/04/19 24 08/10/2023 CT, neck, soft tissu e, w/o contr ast No observ ation record ed. [email or web address] Not Available 08/13 16:05:45 10/01/19 24 09/13/2023 clini pio photo * No observ ation record ed. [email or web address] Not Available 16:58:28 12/17/19 24 audio gram No observ ation record ed. BARCODE Not Available 2023 10:17:27 Result Notes None recorded. Problems Name Problem SNOMED Code Status Onset Date Resolution Date Notes Provider Name and Address Organization Details Recorded Time Mass of neck 182741370 Active 2023 TARIQ Kendall MD [address] [address], [place], [address], [place] - [facility] [place] 4 15:30:32 Neoplasm of uncertain behavior of lip, oral cavity and pharynx 176364408 Active 2023 TARIQ Kendall MD [address] [place] [address], [place], [place], [address], [place] - [facility] [place] 4 15:47:31 Malignant tumor of tongue 053786508 Active 2023 TRUDY SCHULTE MD [address] [place] [address], [place], [place], [address], [place] - [facility] [place] 4 13:37:27 Bilateral tinnitus 7419393951526 Active 2023 PETTY HUITRON [address] [place] [address], [place], [place], [address], [place] - [facility] 4 15:30:44 Oropharynge al dysphagia 56639558 Active 2024 TARIQ Kendall MD [address] [place] [address], [place], [place], [address], [place] - [facility] [place] 5 11:18:36 Problem Notes None recorded. Procedures Surgical History Date Name Laterality Status Provider Name and Address Organization Details Recorded Time 02/26/19 25 FFL_RE completed TARIQ LYNCH MD [address] [place] [address], [phone], [facility] - [facility] [place] 02/27/2024 11:25:13 12/13/19 24 Comp Audio with Tymps (10366 & 77518) completed PETTY HUITRON [address] [place] [address], [phone], [facility] - [facility] 12/13/2023 15:30:30 12/13/19 24 OAE (distortion product, comprehensive - 38916) completed PETTY HUITRON [address] [place] [address], [address], [place] - [facility] 12/13/2023 15:30:37 09/13/19 24 LARYNGOSCOPY, DIRECT OPERATIVE WITH OPERATING MICROSCOPE OR TELESCOPE WITH BIOPSY (SURG) completed Santos Jenkins [place] - [facility] 09/17/2023 09:58:29 09/04/19 24 FFL_RE completed TARIQ LYNCH MD [address] [place] [address], [place], [address], [place] - [facility] 09/04/2023 15:47:16 Imaging Results Imaging Date Name Status LastModified by Organiz ation Details LastModified Time 08/10/2023 CT, neck, soft tissue, w/o contrast completed [email or web address] Information not available 09/04/2023 16:05:45 09/13/2023 clinical photo* completed [email or web address] Information not available 10/01/2023 16:58:28 12/17/2023 audiogram completed BARCODE Information no t available 12/17/2023 10:17:27 Procedure Notes None recorded. Medical Equipment None Reported. Medications Name Sig Start Date Stop Date Status Note LastModified by Organization Details LastModified Time lidoc/nysta/ diphe/antac SWISH AND SPIT OR SWALLOW 5-10ML EVERY 2 HOURS NEEDED FOR THROAT/MOUT H SORE PAIN DISCARD AFTER 14 DAYS) active Not Available Not Available No t Available atorvastatin 20 mg tablet TAKE ONE TABLET BY MOUTH EVERY DAY active Not Available Not Available No t Available enalapril maleate 5 mg tablet TAKE ONE TABLET BY MOUTH EVERY DAY active Not Available Not Available No t Available prochlorpera zine maleate 5 mg tablet TAKE 1 TO 2 TABLETS BY MOUTH EVERY 6 HOURS NEEDED FOR NAUSEA active Not Available Not Available No t Available FreeStyle Lancets 28 gauge USE 1 TEST STRIP TWICE DAILY active Not Available Not Available No t Available ondansetron HCl 4 mg tablet TAKE 1 TO 2 TABLETS BY MOUTH EVERY 8 HOURS NEEDED FOR NAUSEA active Not Available Not Available No t Available famotidine 40 mg tablet TAKE ONE TABLET BY MOUTH DAILY AT BEDTIME active Not Available Not Available N ot Available enalapril maleate 2.5 mg tablet TAKE ONE TABLET BY MOUTH EVERY DAY active Not Available Not Available No t Available olanzapine 5 mg tablet TAKE 1 TABLET BY MOUTH DAILY. START TAKING FROM NIGHT OF TREATMENT FOR 4 NIGHTS, THEN REPEAT AT THE NEXT TREATMENT active Not Available Not Available No t Available glipizide ER 5 mg tablet, extended release 24 hr TAKE TWO TABLETS BY MOUTH TWICE A DAY active Not Available Not Available No t Available oxycodone 5 mg/5 mL oral solution TAKE 10-15 ML. BY MOUTH EVERY 4 HOURS NEEDED FOR PAIN THIS IS A DOSE INCREASE OF 01/09/2024) active Not Available Not Available Not Available lidocaine-pr ilocaine 2.5 %-2.5 % topical cream ADMINISTER 1 APPLICATION TOPICALLY ONCE. APPLY 60 MINUTES PRIOR TO TREATMENT active Not Available Not Available No t Available dexamethason e 4 mg tablet TAKE TWO TABLETS BY MOUTH EVERY MORNING WITH FOOD. START THE DAY AFTER YOUR TREATMENT FOR 3 DAYS. THEN REPEAT AT THE NEXT TREATMENT active Not Available Not Available No t Available prednisone 50 mg tablet TAKE 1 TABLET BY MOUTH 13 HOURS PRIOR TO PROCEDURE, 7 HOURS PRIOR TO PROCEDURE AND 1 HOUR PRIOR TO PROCEDURE. active Not Available Not Available N ot Available sertraline 25 mg tablet TAKE ONE TABLET BY MOUTH EVERY DAY active Not Available Not Available No t Available fluconazole 40 mg/mL oral suspension TAKE 5 ML BY MOUTH DAILY FOR 7 DAYS. active Not Available Not Available No t Available oxycodone 5 mg tablet TAKE ONE TABLET BY MOUTH FOUR TIMES A DAY active Not Available Not Available Not Available tadalafil 5 mg tablet TAKE 1 TABLET BY MOUTH DAILY FOR SEXUAL ACTIVITY. active Not Available Not Available No t Available Januvia 50 mg tablet TAKE ONE TABLET BY MOUTH EVERY DAY active Not Available Not Available No t Available FreeStyle Lite Strips USE TO TEST BLOOD SUGAR TWICE DAILY active Not Available Not Available Not Available Humalog KwikPen (U-100) Insulin 100 unit/mL subcutaneous INJECT PER SLIDING SCALE BEFORE MEALS. FOR BG 150-200, USE 4U. BG 201-250, USE 6U. BG 251-300, USE 8U. BG 301-350, USE 10U. BG 351-400, USE active Not Available Not Available No t Available Banophen 50 mg capsule TAKE 1 CAPSULE BY MOUTH 1 HOUR PRIOR TO YOUR PROCEDURE. active Not Available Not Available N ot Available Stimulant Laxative Plus 8.6 mg-50 mg tablet TAKE 2 TABLETS BY MOUTH DAILY AT BEDTIME. active Not Available Not Available Not Available Trulicity 1.5 mg/0.5 mL subcutaneous pen injector INJECT 1.5 MG 0.5 ML) UNDER THE SKIN EVERY WEEK active Not Available Not Available No t Available BD Jolanta 2nd Gen Pen Needle 32 gauge x 5/32 USE DIRECTED PRIOR TO MEALS. active Not Available Not Available No t Available FreeStyle Nicole 3 Sensor device APPLY ONE SENSOR TO THE ARM EVERY 2 WEEKS active Not Available Not Available No t Available Vitals Date Recorded Body height Body mass index (BMI) Body weight Provider Name and Address Organization Details Last Updated DateTime 09/04/2023 172.72 cm 28.1 kg/m2 60415.59 g Gallito Dave [place] - [facility] 09/04/2023 14:58:16 Date Recorded Body height Body mass index (BMI) Body weight Provider Name and Address Organization Details Last Updated DateTime 02/27/2024 172.72 cm 25.1 kg/m2 26053.74 g Gallito Dave [facility] 02/27/2024 10:59:19 Social History None recorded. Functional Status None recorded. Mental Status None recorded. Family History Nothing Reported. Medical History No medical history recorded. Past Encounters Encounter ID Performer Location Encounter Start Date Encounter Closed Date Diagnosis/Indication Diagnosis SNOMED-CT Code Diagnosis ICD10 Code Diagnosis Note [id number] TARIQ LYNCH MD [facility] [address] [address] 09/04/2023 14:28:11 09/04/2023 16:02:16 Mass of neck 043619179 R22.1 likely metastatic adenopathy Neoplasm o f uncertain behavior of lip, oral cavity and pharynx 257205225 D37.05 R BOT mass seen on my review of CT as well as on FFL consistent with R BOT malignancy with ipsilatera l adenopathy . I recommend a DL with biopsy to clarify the primary site and confirm. The patient is indicated for and a candidate for direct laryngosco py. I discussed the risks, benefits, and alternativ es to direct laryngosco py, bronchosco py, in the operating room. Specifical ly I discussed the risk of damaging the structures we are working on or around including for direct laryngosco py damaging the lips, teeth, gums, tongue, palate, oropharynx , larynx and trachea. I discussed if biopsy of the vocal cords is performed that there is a risk of temporary or permanent hoarseness and voice change. I discussed the possible need for additional procedures . The patient understand s the risks and would like to proceed. We will schedule surgery mutually convenient time. [id number] PETTY HUITRON [facility] [address] [address] 12/13/2023 14:57:12 12/14/2023 08:03:54 Bilateral tinnitus 7173579778 102 H93.13 Right Ear:Normal hearing with excellent speech discrimina tion.Type A tympanogra m.Left Ear:Normal hearing with excellent speech discrimina tion.Type A tympanogra m.See audio for ultra high and OAE results. [id number] TARIQ LYNCH MD [facility] [address] [address] 02/27/2024 10:08:48 02/27/2024 11:26:55 History of malignant neoplasm of oropharynx 9391955207 7037807 Z85.818 Exam and Laryngosco py showed no evidence of disease. We will continue routine surveillan ce. Screening for malignant neoplasm of respiratory tract 035830789 Z12.2 Exam and Laryngosco py showed no evidence of disease. We will continue routine surveillan ce. Oropharyng eal dysphagia 93344751 R13.12 likely post tx. will likely improve with time. Encouraged him to continue to try PO intake. Health Concerns Section Related Observation LastModified by Organization Detai ls LastModified Time None Recorded Concern Status LastModified by Organization Details LastModified Time None Recorded Advance Directives Directive None Recorded Payers Encounter Date Sequence Insurance Name Policy Number Policy Maria Covered Member ID Maria Member ID Guarantor Name 09/04/2023 1 [place] [facility] [id number] Flash Solo [id number] Flash Solo 12/13/2023 1 [place] [facility] [id number] Flash Dickerson Solo [id number] Flash Dickerson Solo 02/27/2024 1 [place] [facility] [id number] Flash Dickerson Solo [id number] Flash Solo Notes Date Note Type Note Provider Name and Address Organization Details Recorded Time 09/04/2023 text/html In May he note d a right neck mass himself. He saw his PCP. He is allergic to Iodine and a non-contrast neck CT was done which showed possible mass in the right tongue base with possible ipsilateral adenopathy. He has never smoked. 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 No throat pain. No dysphagia. He does have some globus sensation for a year. He denies hoarseness. No SOB. No otalgia. 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 He still has a feeding tube. He is trying to eat but his PO intake has been limited. He some throat pain. He has not had a post [place] PET scan yet. Denies SOB. TARIQ LYNCH MD [address] [facility],[address] [address], [place], [address], [place] - [facility] 02/27/2024 11:26:15
--- OUTSIDE RECORDS SUMMARY | 2024-04-11 13:47 | XMS_ITS | Encounter Summary ---
Author Organization [facility] Address [address] [place] [address] Phone Care Team Providers Care Senior Business Manager Name Role Phone Natan Dickey MD Primary Care Provider [phone] Encounter Details Date Type Department Care Team (Late st Contact Info) Description 05/12/2020 Orders Only [facility] [address] [place] [address] [phone] Clemente Gomez MD Acute injury of kidney (HCC); Essential (primary) hypertension Social History Tobacco Use Types Packs/Day Years Used Date Smoking Tobacco: Never Smokeless Tobacco: Never Alcohol Use Standard Drinks/Week Comments Never 0 (1 standard drink = 0.6 oz pur e alcohol) Sex and Gender Information Value Date Recorded Sex Assigned at Not on file Legal Sex Male 4:59 PM EST Gender Identity Not on file Sexual Orientation Not on file documented as of this encounter Plan of Treatment Not on file documented as of this encounter Procedures Procedure Name Priority Date/Time Associated Diagnosis Comments URINALYSIS Routine 05/12/2020 10:08 AM EDT CBC AND DIFFERENTIAL Routine 05/12/2020 8:38 AM EDT US RENAL COMPLETE Routine 05/11/2020 9:4 6 AM EDT Acute injury of kidney (HCC) Essential (primary) hypertension documented in this encounter Results * Urinalysis (05/12/2020 10:08 AM EDT) Color Urine YELLOW [place] Appearance Urine CLEAR [place] pH Urine 6.0 5.0 - 8.0 [place] Glucose Urine NEG NEG MG/DL [place] Blood, Urine NEG NEG [place] Specific [place] Urine 1.025 1.005 - 1.025 [place] Protein Urine NEG NEG-TRACE MG/DL [place] Ketones, Urine 40 NEG MG/DL [place] Nitrite, Urine NEG NEG [place] Leukocyte Esterase Urine NEG NEG [place] 05/12/2020 10:0 8 AM EDT 05/12/2020 10:08 AM EDT us Clemente Gomez MD LAB URINE ORDERABLES Final Resul t [email or web address] * CBC and Differential (05/12/2020 8:38 AM EDT) WBC 6.0 4.8 - 10.8 X10*3/uL [place] RBC 5.44 4.60 - 5.80 X10*6/uL [place] Hgb 15.2 14.0 - 18.0 g/dl [place] Hematocrit 47.1 42 - 52 % [place] MCV 86.6 80 - 98 fL [place] MCH 27.9 27.0 - 33.0 pg [place] MCHC 32.3 31.0 - 36.0 g/dl [place] RDW 14.1 11.0 - 16.0 % [place] Platelets 265 160 - 400 X10*3/uL [place] MPV 11.4 9.4 - 12.4 fL [place] Neutrophils % Auto 64.7 45 - 73 % [place] Immature Granulocytes 0.3 0.0 - 0.4 % [place] Lymphocytes Relative 24.7 20 - 40 % [place] Monocytes 7.9 2 - 11 % [place] Eosinophils Relative 1.7 0 - 4 % [place] Basophils Relative 0.7 0 - 2 % [place] nRBC Count 0.0 0.0 - 0.2 /100WBC [place] Neutrophils Absolute 3.9 2.0 - 8.3 X10*3/uL [place] Immature Grans (Absolute) 0.02 0.00 - 0.03 X10*3/uL [place] Lymphocytes Absolute 1.5 1.2 - 4.9 X10*3/uL [place] Monocytes Absolute 0.5 0.1 - 1.2 X10*3/uL [place] Eosinophils Absolute 0.1 0.0 - 0.4 X10*3/uL [place] Basophils Absolute 0.0 0.0 - 0.2 X10*3/uL [place] NRBC Absolute 0.000 0.0 - 0.012 X10*3/uL [place] 05/12/2020 8:38 AM EDT 05/12/2020 8:38 AM EDT us Clemente Gomez MD LAB BLOOD ORDERABLES Final Resul t TEZ * Ultrasound renal complete (05/11/2020 9:46 AM EDT) Anatomical Region Laterality Modality Body Ultrasound us Clemente Gomez MD IMG US PROCEDURES Final Result documented in this encounter Visit Diagnoses Diagnosis Acute injury of kidney Essential (primary) hypertension documented in this encounter Care Teams Senior Business Manager Relationship Specialty Start Date End Date Natan Dickey MD [address] [place] PCP - General Internal Medicine 04/28/20 documented as of this encounter
--- OUTSIDE RECORDS SUMMARY | 2024-04-11 13:47 | XMS_ITS | Patient Health Record ---
Author Organization [facility] Address [address] [place] [address] Care Team Providers Care Tongue And Groove Machine Feeder Name Role Phone Natan Dickey MD Primary Care Provider Gamaliel Lyles Unavailable [phone] ALLERGIES Allergen (clinical drug ingredient) Drug/Non Drug Allergy documented on EMR Reaction Allergy Type Onset Date Status iodine (uncoded) Unknown Allergy Act ann-marie Shellfish (FN) shell fish (uncoded) Unknown Allergy Active REASON FOR REFERRAL No Information MEDICATIONS Medication SIG (Take, Route, Frequency, Duration) Notes Start Date End Date Status Atorvastatin Calcium 20 MG TAKE ONE TABL ET BY MOUTH EVERY DAY Oral for 30 Active Tamsulosin HCl 0.4 MG as directed Orally Active Allopurinol Active metFORMIN HCl 500 MG Oral for 30 Active Magnesium Active Flaxseed (Linseed) A ctive IMMUNIZATIONS Vaccine Route Administration Date Status Comme nts Influenza Unknown 12/10/2020 Refused SOCIAL HISTORY Sex Assigned At : Social History Observation Description Sex Assigned At Unknown PROBLEMS Problem Type ICD Code Onset Dates Problem Status W/U Status Risk SNOMED Code Notes Problem Encounter for screening for malignant neoplasm of colon (Z12.11) Active confirmed 281679287 Problem Change in bowel habit (R19.4) Active confirmed 930322476 Problem Weight loss (R63.4) Active confirmed 89 480633 Problem Encounter for screening for malignant neoplasm of rectum (Z12.12) Active confirmed Screening for malignant neoplasm of rectum (361873177) Problem Preprocedural examination (Z01.818) Active confirmed 91120972 Problem Constipation, unspecified constipation type (K59.00) Active confirmed 58154687 Problem Gastritis (K29.70) Active confirmed Gas tritis (0051946) Problem Gastroesophageal reflux (K21.9) Active confirmed Esophageal reflux finding (765836713) Problem Diverticulosis of colon (K57.30) Active confirmed Diverticulosi s of colon (770166098) PLAN OF TREATMENT Pending Test Test Name Order Date TSH (THYROID STIMULATING HORMONE) 2020 CELIAC PANEL #10 12/10/2020 Future Test Test Name Order Date COLONOSCOPY 01/14/2015 UPPER GI ENDOSCOPY 12/10/2020 COLONOSCOPY 12/10/2020 Insurance Providers Payer Name Payer Address Payer Phone Subscriber Number Group Number Insured Name Patient Relationship to Insured Coverage Start Date Coverage End Date [facility] [place] [phone] [id number] AMBROSE Self - patient is the insured MEDICAL (GENERAL) HISTORY Medical History History ICD Code 2008- silent heart attack-- had a cardiac cath that was negative--no problems since - [place] cardilogy HTN Hyperlipidemia Gout Back pain-disc disease Denies CVA,Lung disease,renal disease NIDDM Kidney stones Negative screening colonoscopy in 04/2015 Anxiety and depression, ? PTSD EGD 12/2020-small HH, duodenal bx neg fo r celiac disease; neg H.pylori Colonoscopy 12/2020 was negative Surgical History Surgery Date(Month/Year)
== END 2024-04-11 12:13 | disposition home or self-care (01) ==
PROVIDERS: PCP Internal Medicine; Visit Provider Urology
DX: R35.0 Frequency of micturition (principal); E11.69 Type 2 diabetes mellitus with other specified complication; N52.1 Erectile dysfunction due to diseases classified elsewhere; N32.0 Bladder-neck obstruction
CPT/HCPCS: 99213

== ENCOUNTER → 2024-04-11 11:31 | Outpatient (BNVA) | payer BC, SELFPAY | PROVIDERS: PCP Internal Medicine; Visit Provider Urology | DX: R35.0 Frequency of micturition (principal); E11.69 Type 2 diabetes mellitus with other specified complication; N52.1 Erectile dysfunction due to diseases classified elsewhere; N32.0 Bladder-neck obstruction | CPT/HCPCS: 51798 ==

== ENCOUNTER 2024-05-09 09:16 | Outpatient (AMB) | payer BC, SELFPAY ==
--- NOTE | 2024-05-09 09:24 | A.OFFPC_ITS ---
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 Required: No Accompanied by: Self / Same As Patient Allergies iodine Allergy (Severe, Verified 05/09/24 09:25) Unknown shellfish derived Allergy (Severe, Verified 05/09/24 09:25) SWELLING Primatene Asthma Allergy (Unknown, Uncoded 05/09/24 09:25) Unknown sea food Allergy (Unknown, Uncoded 05/09/24 09:25) Swelling Tobacco use date assessed: 05/09/24 Dental Screening Dental Screen Date: 05/09/24 Did you have a dental visit in the last 12 months?: No Did you have a dental problem in the last 6 months where you did not have access to dental care?: No HPI HPI Comments History of Present Illness Details Flash is 58 year old male with a past medical history of DM, BPH, prostatitis, pharyngeal mass presenting for follow up. 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 A1C is due. Reviewed CGM GMI 6.0%. Doing well. Overdue for eye exam CV: on enalapril, atorvastatin ENT: Had biopsy of pharyngeal mass. Got radiation-35 treatments, chemo x 6 weeks. Had PET scan. Dr Quiles said looked ok some lymph nodes lit-will do Medical oncology on the at [facility]. CT scan in 3 months. Urology: Following with Dr Porras. - prostatitis - bladder outlet obstruction - erectile dysfunction in the setting of diabetes double endoscopy 2020-Dr Hudson 10year ROS CONSTITUTIONAL: Denies weight loss, fever and chills. HEENT: Denies changes in vision and hearing. RESPIRATORY: Denies SOB and cough. CV: Denies palpitations and CP GI: Denies abdominal pain, nausea, vomiting and diarrhea. : Denies dysuria and urinary frequency. MSK: Denies new myalgia and joint pain. SKIN: Denies rash and pruritus. NEUROLOGICAL: Denies headache PSYCHIATRIC: Denies recent changes in mood. PHYSICAL EXAM: GENERAL: Alert and oriented x 3. NAD EYES: EOMI. Anicteric. HENT: Moist mucous membranes. No scleral icterus. No cervical lymphadenopathy. LUNGS: Clear to auscultation bilaterally. CARDIOVASCULAR: Regular rate and rhythm. No murmur. No JVD. ABDOMEN: Soft, non-tender +bs EXTREMITIES: No edema. Non-tender. SKIN: No rashes or lesions. Warm. NEUROLOGIC: No focal neurological deficits. CN II-XII grossly intact PSYCHIATRIC: Cooperative. Appropriate mood and affect [facility] Medical History Urinary frequency Gout Back problem Heart attack High cholesterol HTN (hypertension) Diabetes Surgical History Hx of colonoscopy Family History Father CHF (congestive heart failure) Mother Diabetes AD (Alzheimer's disease) Social History Housing: House Alcohol intake: current Alcohol intake frequency: does not drink Patient Tobacco Use Status: Never used Tobacco service: No Current occupational status: employed Cognitive needs: No Hearing needs: No Vision needs: Yes (rx glasses) Questionnaire PHQ-9 Over the last 2 weeks, how often have you been bothered by any of the following problems? 1. Little interest or pleasure in doing things: not at all 2. Feeling down, depressed, or hopeless: not at all 3. Trouble falling or staying asleep, or sleeping too much: not at all 4. Feeling tired or having little energy: not at all 5. Poor appetite or overeating: not at all 6. Feeling bad about yourself - or that you are a failure or have let yourself or your family down: not at all 7. Trouble concentrating on things, such as reading the newspaper or watching television: not at all 8. Moving or speaking so slowly that other people could have noticed. Or the opposite - being so fidgety or restless that you have been moving around a lot more than usual: not at all 9. Thoughts that you would be better off or of hurting yourself in some way: not at all Total score: 0 Depression Screening Interpretation: Negative Depression Screening Done: Yes 76910 - PHQ-9 Billing: Yes Source: Developed by Drs. Gamaliel Fermin, Mikey Gibson and colleagues, with an educational jennifer from [employer]. Thrive Questionnaire Date Thrive assessed: 05/09/24 I am a: Patient What is your living situation today?: I have a steady place to live Within the past 12 months, did the food you bought not last and you didn't have the money to get more?: Never true Within the past 12 months, did you worry whether your food would run out before you got money to buy more?: Never true Do you have trouble paying for medicines?: No Do you have trouble getting transportation to medical appointments?: No Do you have trouble paying your heating and electricity bill?: No Do you have trouble taking care of your child, family member or friend?: No Do you have trouble with day-to-day activities such as bathing, preparing meals, shopping, managing finances, etc.?: No Are you currently unemployed and looking for a job?: No Are you interested in more education?: No Please select the resources that you would like help with: None THRIVE Score: 0 AUDIT C Alcohol Use Questionnaire (AUDIT-C) 1. How often do you have a drink containing alcohol?: Never 3. How often do you have six or more drinks on one occasion?: Never Total Score: 0 GLENN-7 AMB Questionnaire GLENN-7 Date GLENN - 7 assessed: 05/09/24 Feeling nervous, anxious, or on edge: 0 = Not at all Not being able to stop or control worryin = Not at all Worrying too much about different things: 0 = Not at all Trouble relaxin = Not at all Being so restless that it is hard to sit still: 0 = Not at all Becoming easily annoyed or irritable: 0 = Not at all Feeling afraid as if something awful might happen: 0 = Not at all Total GLENN-7 score (0-4 normal; 5-9 mild; 10-14 moderate; 15-21 severe): 0 Source: Developed by Drs. Gamaliel Fermin, Mikey Gibson and colleagues, with an educational jennifer from [employer]. Physical exam (Primary Care) Vital Signs: Last Vital Signs Temp 97.6 F 05/09/24 09:27 Pulse 84 05/09/24 09:27 Resp 14 05/09/24 09:27 BP 130/80 05/09/24 09:27 Pulse Ox 99 05/09/24 09:27 Oxygen Delivery Method Room Air 05/09/24 09:27 BMI result Body Mass Index 24.6 Tobacco/Smoking Status: Tobacco use Status Tobacco use date assessed 05/09/24 05/09/24 09:27 Patient Tobacco Use Status Never used Tobacco 05/09/24 09:27 PHQ-9: PHQ-9 Score PHQ-9: Total score 0 05/10/24 13:12 Depression Screening Interpretation: Negative Thrive Assessment: Date of Thrive Assessment Date Thrive assessed 05/09/24 05/09/24 09:27 Coding Level of Care Code New Pt Level 4 (04596) Complex EM visit Add On G2211 Diagnoses Type 2 diabetes mellitus without complication, without long-term current use of insulin E11.9 Diabetes mellitus complication status: without complication Diabetes mellitus intermediate teacher insulin use: without intermediate teacher use Diabetes mellitus type: type 2 Primary hypertension I10 Hypertension type: primary hypertension Head and neck cancer C76.0 Additional Codes PHQ-9 - 04090 - PHQ-9 Billing: Yes ([id number]) Assessment & Plan Assessment & Plan (1) Diabetes: Code(s): E11.9 - Type 2 diabetes mellitus without complications Category: Medical Qualifiers: Diabetes mellitus complication status: without complication Diabetes mellitus intermediate teacher insulin use: without intermediate teacher use Diabetes mellitus type: type 2 Qualified Code(s): E11.9 - Type 2 diabetes mellitus without complications (2) HTN (hypertension): Code(s): I10 - Essential (primary) hypertension Category: Medical Qualifiers: Hypertension type: primary hypertension Qualified Code(s): I10 - Essential (primary) hypertension (3) Head and neck cancer: Code(s): C76.0 - Malignant neoplasm of head, face and neck Category: Medical Plan 58 year old to establish care Past medical, surgical, social, family history reviewed. Labs orday Continue follow up heme/onc Discussed need to keep eye exam updated Orders: Orders Hemoglobin A1c 05/09/24 E11.69 - Type 2 diabetes mellitus with other specified complication, E11.9 - Type 2 diabetes mellitus without complications, I10 - Essential (primary) hypertension, N52.1 - Erectile dysfunction due to diseases classified elsewhere Lipid Panel 05/09/24 E11.69 - Type 2 diabetes mellitus with other specified complication, E11.9 - Type 2 diabetes mellitus without complications, I10 - Essential (primary) hypertension, N52.1 - Erectile dysfunction due to diseases classified elsewhere Complete Blood Count Auto Diff 05/09/24 E11.69 - Type 2 diabetes mellitus with other specified complication, E11.9 - Type 2 diabetes mellitus without complications, I10 - Essential (primary) hypertension, N52.1 - Erectile dysfunction due to diseases classified elsewhere Comprehensive Met. Panel 05/09/24 E11.69 - Type 2 diabetes mellitus with other specified complication, E11.9 - Type 2 diabetes mellitus without complications, I10 - Essential (primary) hypertension, N52.1 - Erectile dysfunction due to diseases classified elsewhere Microalbumin, Random (w Creat) 05/09/24 E11.69 - Type 2 diabetes mellitus with other specified complication, E11.9 - Type 2 diabetes mellitus without complications, I10 - Essential (primary) hypertension, N52.1 - Erectile dysfunction due to diseases classified elsewhere
[2024-05-09 09:27] VITALS: BP 130/80; PULSE 84; RESP 14; TEMP 36.4; O2SAT 99; BMI 24.6
== END 2024-05-09 09:48 | disposition home or self-care (01) ==
LOC: HO.HMCHD 09:17
PROVIDERS: PCP Internal Medicine; Visit Provider Internal Medicine
DX: E11.9 Type 2 diabetes mellitus without complications (principal); I10 Essential (primary) hypertension; C76.0 Malignant neoplasm of head, face and neck

== ENCOUNTER → 2024-05-09 09:16 | Outpatient (BNVA) | payer BC, SELFPAY | PROVIDERS: PCP Internal Medicine; Visit Provider Internal Medicine | DX: N40.0 Benign prostatic hyperplasia without lower urinary tract symptoms (principal); E11.69 Type 2 diabetes mellitus with other specified complication; N52.1 Erectile dysfunction due to diseases classified elsewhere; I10 Essential (primary) hypertension; C76.0 Malignant neoplasm of head, face and neck | CPT/HCPCS: 96127 ==

== ENCOUNTER 2024-05-09 10:04 | Outpatient (REF) | payer BC, SELFPAY ==
[2024-05-09 13:31] LABS: MANUAL DIFF FLAG NO
[2024-05-09 13:44] LABS: Basophils Percent Auto 0.6 % (0-2); Eosinophils Absolute Auto 0.1 X10*3/uL (0.0-0.4); Eosinophils Percent Auto 2.2 % (0-4); Hematocrit 45.1 % (42.0-52.0); Hemoglobin 15.2 g/dl (14.0-18.0); Imm Gran Abs Auto 0.01 X10*3/uL (0.00-0.03); Imm Gran Pct Auto 0.2 % (0.0-0.4); Lymphocytes Absolute Auto 0.6 X10*3/uL (1.2-4.9); Lymphocytes Percent Auto 11.4 % (20-40); Mean Corpuscular HGB Conc 33.7 g/dl (31.0-36.0); Mean Corpuscular Hemoglobin 27.9 pg (27.0-33.0); Mean Corpuscular Volume 82.8 fL (80.0-98.0); Mean Platelet Volume 10.3 fL (9.4-12.4); Monocytes Absolute Auto 0.5 X10*3/uL (0.1-1.2); Monocytes Percent Auto 9.8 % (2-11); Neutrophils Absolute Auto 3.9 x10*3/uL (2.0-8.3); Neutrophils Percent Auto 75.8 % (45-73); Platelet Count 205 X10*3/uL (160-400); Red Blood Count 5.45 X10*6/uL (4.60-5.80); Red Cell Distribution Width 13.2 % (11.0-16.0); White Blood Count 5.1 X10*3/uL (4.8-10.8)
[2024-05-09 13:49] LABS: Estimated Average Glucose 131 mg/dL; Hemoglobin A1c % 6.2 % (<6.0)
[2024-05-09 14:10] LABS: Alanine Aminotransferase 17 U/L (0-40); Albumin Level 4.1 g/dL (3.5-5.0); Alkaline Phosphatase 63 U/L (39-117); Anion Gap 9 (12-20); Aspartate Amino Transferase 16 U/L (5-37); Blood Urea Nitrogen 12 mg/dL (9-16); Calcium 9.6 mg/dL (8.4-10.2); Carbon Dioxide 31 mmol/L (22-29); Chloride 105 mmol/L (96-108); Cholesterol 121 mg/dL (<200); Estimated Glomerular Filt Rate > 60; Glucose Random 149 mg/dL (60-115); HDL Cholesterol 39 mg/dL (>40); LDL Cholesterol Calculated 53 mg/dL (<100); Potassium 3.7 mmol/L (3.3-5.1); Sodium 141 mmol/L (135-145); Total Protein 6.7 g/dL (6.5-8.0); Triglycerides 145 mg/dL (<150)
[2024-05-09 14:17] LABS: Creatinine Urine 312.96 mg/dL; Microalbum/Creatinine Ratio Ur 3.8 ug/mg cr (<30)
== END 2024-05-09 10:05 | disposition home or self-care (01) ==
LOC: HO.10HDL 10:04
PROVIDERS: Visit Provider Internal Medicine
DX: E11.69 Type 2 diabetes mellitus with other specified complication (principal); I10 Essential (primary) hypertension; N52.1 Erectile dysfunction due to diseases classified elsewhere
CPT/HCPCS: 36415; 80053; 80061; 82043; 82570; 83036; 85025

== ENCOUNTER 2024-07-25 11:30 | Outpatient (REF) | payer BC, SELFPAY ==
--- OUTSIDE RECORDS SUMMARY | 2024-07-25 12:27 | XMS_ITS | Encounter Summary ---
Author Organization [facility] Address [address] [place] [address] Phone Care Team Providers Care Ship'S Cook Name Role Phone Natan Dickey MD Primary Care Provider [phone] Encounter Details Date Type Department Care Team (Late st Contact Info) Description 05/12/2020 Orders Only [facility] [address] [place] [address] [id number] Clemente Gomez MD Acute injury of kidney [...] [place] Blood, Urine NEG NEG [place] Specific [place] Urine 1.025 1.005 - 1.025 [place] Protein [...] hypertension documented in this encounter Care Teams Ship'S Cook Relationship Specialty Start Date End Date Natan Dickey MD [address] [place] PCP - General Internal Medicine 04/28/20 documented as of this encounter
[2024-07-25 13:23] LABS: Appearance Urine Clear; Color Urine Dark Yellow; Glucose Urine UA 250 mg/dL (Negative); Leukocyte Esterase Urine Negative (Negative); Nitrite Urine Negative (Negative); PH 5.5 (5.0-9.0); Specific Gravity - Urine 1.025 (1.005-1.025); Urine Blood Negative (Negative); Urine Ketones Trace mg/dL (Negative); Urine Protein Trace mg/dL (Neg-Trace)
[2024-07-25 13:28] LABS: Bacteria Urine None Seen (None Seen); Hyaline Casts Urine 0-2 /LPF (0-2); RBC Urine 0-2 /HPF (0-2); Squamous Epithelial Cell Urine 0-2 /HPF (0-2); WBC Urine 0-5 /HPF (0-5)
== END 2024-07-25 11:31 | disposition home or self-care (01) ==
LOC: HO.10HDLNP 11:30
PROVIDERS: Visit Provider Urology
DX: N41.9 Inflammatory disease of prostate, unspecified (principal); R35.0 Frequency of micturition
CPT/HCPCS: 81001; 87086

== ENCOUNTER 2024-09-18 10:30 | Outpatient (AMB) | payer BC, SELFPAY ==
--- NOTE | 2024-09-18 10:31 | A.OFFPC_ITS ---
Vital Signs 09/18/24 10:34 09/18/24 10:41 Height 5 ft 7 in Weight 161 lb BMI 25.2 BP 128/100 H Blood Pressure Location Lt brachial Position Sitting Respiration 16 Pulse 87 Pulse Source Pulse Oximeter Temp 97 F Pulse Oximetry (%) 98 Oxygen Delivery Method Room Air Intake Visit Reasons: 4 Month F/U Religious Leader Required: No Accompanied by: Self / Same As Patient Allergies iodine Allergy (Severe, Verified 09/18/24 10:31) Unknown shellfish derived Allergy (Severe, Verified 09/18/24 10:31) SWELLING Primatene Asthma Allergy (Unknown, Uncoded 05/09/24 09:25) Unknown sea food Allergy (Unknown, Uncoded 05/09/24 09:25) Swelling Tobacco use date assessed: 05/09/24 Dental Screening Dental Screen Date: 05/09/24 HPI HPI Comments History of Present Illness Details Flash is 58 year old male with a past medical history of DM, BPH, prostatitis, pharyngeal mass presenting for follow up DM: Off januvia, glipizide. Continues trulicty.. A1C is due. Reviewed CGM. Doing well. CV: on enalapril, atorvastatin. Blood pressure is well controlled ENT: Had biopsy of pharyngeal mass. Got radiation-35 treatments, chemo x 6 weeks. Had PET scan. Dr Quiles. Urology: Following with Dr Porras. - prostatitis - bladder outlet obstruction - erectile dysfunction in the setting of diabetes double endoscopy 2020-Dr Hudson 10year ROS CONSTITUTIONAL: Denies weight loss, fever and chills. HEENT: Denies changes in vision and hearing. RESPIRATORY: Denies SOB and cough. CV: Denies palpitations and CP GI: Denies abdominal pain, nausea, vomiting and diarrhea. : Denies dysuria and urinary frequency. MSK: Denies new myalgia and joint pain. SKIN: Denies rash and pruritus. NEUROLOGICAL: Denies headache PSYCHIATRIC: Denies recent changes in mood. PHYSICAL EXAM: GENERAL: Alert and oriented x 3. NAD EYES: EOMI. Anicteric. HENT: Moist mucous membranes. No scleral icterus. No cervical lymphadenopathy. LUNGS: Clear to auscultation bilaterally. CARDIOVASCULAR: Regular rate and rhythm. No murmur. No JVD. ABDOMEN: Soft, non-tender +bs EXTREMITIES: No edema. Non-tender. SKIN: No rashes or lesions. Warm. NEUROLOGIC: No focal neurological deficits. CN II-XII grossly intact PSYCHIATRIC: Cooperative. Appropriate mood and affect [facility] Medical History Urinary frequency Gout Back problem Heart attack High cholesterol HTN (hypertension) Diabetes Surgical History Hx of colonoscopy Family History Father CHF (congestive heart failure) Mother Diabetes AD (Alzheimer's disease) Social History Housing: House Alcohol intake: current Alcohol intake frequency: does not drink Patient Tobacco Use Status: Never used Tobacco e-Cigarette/Vaping Use: Never Used service: No Current occupational status: employed Cognitive needs: No Hearing needs: No Vision needs: Yes (rx glasses) Questionnaire Thrive Questionnaire Date Thrive assessed: 05/09/24 AUDIT C Alcohol Use Questionnaire (AUDIT-C) 1. How often do you have a drink containing alcohol?: Never Total Score: 0 GLENN-7 AMB Questionnaire GLENN-7 Date GLENN - 7 assessed: 05/09/24 Source: Developed by Drs. Gamaliel Fermin, Juana Dunham, Mikey Hilliard and colleagues, with an educational jennifer from [employer]. Physical exam (Primary Care) Vital Signs: Last Vital Signs Temp 97 F 09/18/24 10:41 Pulse 87 09/18/24 10:41 Resp 16 09/18/24 10:41 BP 128/100 H 09/18/24 10:41 Pulse Ox 98 09/18/24 10:41 Oxygen Delivery Method Room Air 09/18/24 10:41 BMI result Body Mass Index 25.2 Tobacco/Smoking Status: Tobacco use Status Tobacco use date assessed 05/09/24 09/18/24 10:34 Patient Tobacco Use Status Never used Tobacco 09/18/24 10:34 e-Cigarette/Vaping Use Never Used 09/18/24 10:34 Thrive Assessment: Date of Thrive Assessment Date Thrive assessed 05/09/24 09/18/24 10:34 Coding Level of Care Code Est Pt Level 4 (88557) Diagnoses Type 2 diabetes mellitus without complication, without long-term current use of insulin E11.9 Diabetes mellitus complication status: without complication Diabetes mellitus fpc insulin use: without ad terminal makeup operator use Diabetes mellitus type: type 2 Primary hypertension I10 Hypertension type: primary hypertension Head and neck cancer C76.0 Assessment & Plan Assessment & Plan (1) Diabetes: Code(s): E11.9 - Type 2 diabetes mellitus without complications Category: Medical Qualifiers: Diabetes mellitus complication status: without complication Diabetes mellitus ad terminal makeup operator insulin use: without ad terminal makeup operator use Diabetes mellitus type: type 2 Qualified Code(s): E11.9 - Type 2 diabetes mellitus without complications (2) HTN (hypertension): Code(s): I10 - Essential (primary) hypertension Category: Medical Qualifiers: Hypertension type: primary hypertension Qualified Code(s): I10 - Essential (primary) hypertension (3) Head and neck cancer: Code(s): C76.0 - Malignant neoplasm of head, face and neck Category: Medical Plan 59 year old male presenting for follow up Diabetes is well controlled per CGM. Check lab A1C Pharyngeal cancer-treated. continue heme/onc follow up Orders: Orders Hemoglobin A1c 09/18/24 E11.9 - Type 2 diabetes mellitus without complications Comprehensive Met. Panel 09/18/24 E11.9 - Type 2 diabetes mellitus without complications
[2024-09-18 10:34] VITALS: BMI 25.2
[2024-09-18 10:41] VITALS: BP 128/100; PULSE 87; RESP 16; TEMP 36.1; O2SAT 98
--- OUTSIDE RECORDS SUMMARY | 2024-09-18 11:05 | XMS_ITS | Encounter Summary ---
Author Organization [facility] Address [address] [place] [address] Phone Care Team Providers Care Civil Drafting Technician Name Role Phone Natan Dickey MD Primary Care Provider [phone] Encounter Details Date Type Department Care Team (Late st Contact Info) Description 05/12/2020 Orders Only [facility] [address] [place] [address] [phone] Clemente Gomez MD Acute injury of kidney [...] [place] Blood, Urine NEG NEG [place] Specific [place] Urine 1.025 1.005 - 1.025 [place] Protein [...] hypertension documented in this encounter Care Teams Civil Drafting Technician Relationship Specialty Start Date End Date Natan Dickey MD [address] [place] PCP - General Internal Medicine 04/28/20 documented as of this encounter
== END 2024-09-18 11:06 | disposition home or self-care (01) ==
LOC: HO.HMCHD 10:30
PROVIDERS: PCP Internal Medicine; Visit Provider Internal Medicine
DX: E11.9 Type 2 diabetes mellitus without complications (principal); I10 Essential (primary) hypertension; C76.0 Malignant neoplasm of head, face and neck

== ENCOUNTER 2024-09-18 11:29 | Outpatient (REF) | payer BC, SELFPAY ==
[2024-09-18 13:08] LABS: Hemoglobin A1C 186.3734 umol/L; Total Hemoglobin (HGBA1C) 4110.5401 umol/L
[2024-09-18 13:58] LABS: Alanine Aminotransferase 32 U/L (0-40); Albumin Level 4.3 g/dL (3.5-5.0); Alkaline Phosphatase 65 U/L (39-117); Anion Gap 13 (12-20); Aspartate Amino Transferase 22 U/L (5-37); Blood Urea Nitrogen 16 mg/dL (9-16); Calcium 9.7 mg/dL (8.4-10.2); Carbon Dioxide 31 mmol/L (22-29); Chloride 104 mmol/L (96-108); Estimated Glomerular Filt Rate > 60; Potassium 3.8 mmol/L (3.3-5.1); Sodium 144 mmol/L (135-145); Total Protein 6.7 g/dL (6.5-8.0)
[2024-09-18 14:05] LABS: Prostate Specific Antigen 1.26 ng/mL (<0.05-4.0)
== END 2024-09-18 11:30 | disposition home or self-care (01) ==
LOC: HO.10HDL 11:29
PROVIDERS: Urology; Visit Provider Internal Medicine
DX: E11.69 Type 2 diabetes mellitus with other specified complication (principal); N52.1 Erectile dysfunction due to diseases classified elsewhere; N41.9 Inflammatory disease of prostate, unspecified; R35.0 Frequency of micturition; N32.0 Bladder-neck obstruction; Z12.5 Encounter for screening for malignant neoplasm of prostate
CPT/HCPCS: 36415; 80053; 83036; 84153

== ENCOUNTER 2024-10-09 08:54 | Outpatient (REF) | payer BC, SELFPAY ==
[2024-10-13 19:13] LABS: Testosterone, Free 74.7 pg/mL (35.0-155.0)
== END 2024-10-09 08:55 | disposition home or self-care (01) ==
LOC: HO.LAB 08:54
PROVIDERS: PCP Internal Medicine; Visit Provider Urology
DX: E11.69 Type 2 diabetes mellitus with other specified complication (principal); N52.1 Erectile dysfunction due to diseases classified elsewhere; N32.0 Bladder-neck obstruction; Z79.899 Other long term (current) drug therapy
CPT/HCPCS: 36415; 83002; 84402; 84403

== ENCOUNTER 2024-10-09 08:54 | Outpatient (AMB) | payer BC, SELFPAY ==
--- NOTE | 2024-10-09 08:54 | A.OFFVIS_ITS ---
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 He is a patient of Dr. Dickey. He is seen for the following urologic conditions - prostatitis - bladder outlet obstruction - erectile dysfunction in the setting of diabetes Telemedicine Evaluation 15 min Consultation [place] Darcie Video Six-month follow-up Discussed lab results Has had some urgency and frequency. Restart alfuzosin as Trial 30 day with refill. Did discuss testosterone status as diabetic male. Lab work placed. Prior diagnosis with neck cancer - treated with XRT Continued good response to daily tadalafil Helpful for both erections and bladder function Continue with interval surveillance - q6 months Discussed diabetic control with extended scooby phenomena, nocturnal management. 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 Bladder outlet obstruction Turned out he had chronic prostatitis Did well with medications Had responded well to Flomax but had side effects Current medications - tadalafil PSA 11/04 0.9 - only needs to be checked every 2-3 years, 10/06 1.3 Erectile dysfunction setting of diabetes Good response to tadalafil 5 mg daily Diabetes - HbA1c 11/04 7.8%, 05/05 11%, 10/06 6.3% Reports prior PSA in normal range PFSH Medical History Urinary frequency Gout Back problem Heart attack High cholesterol HTN (hypertension) Diabetes Surgical History Hx of colonoscopy Family History Father CHF (congestive heart failure) Mother Diabetes AD (Alzheimer's disease) Social History Housing: House Alcohol intake: current Alcohol intake frequency: does not drink Patient Tobacco Use Status: Never used Tobacco e-Cigarette/Vaping Use: Never Used service: No Current occupational status: employed Cognitive needs: No Hearing needs: No Vision needs: Yes (rx glasses) Review of Systems Const All systems reviewed & are unremarkable except as noted in HPI and below Reports no additional complaints Resp Reports no additional complaints GI Reports no additional complaints Reports as per HPI Musc Reports no additional complaints Physical Exam Telemedicine evaluation Appropriate responses Regular breathing rate and rhythm HEENT Head: Yes normal to inspection Ears: hearing grossly normal bilaterally Eyes General: appearance normal, both eyes and all related structures Neck Neck: Yes normal visual inspection Chest Chest palpation & inspection: normal inspection of the chest Resp Effort & Inspection: normal respiratory effort and able to speak in complete sentences Telehealth Telehealth Telehealth Platform: [place] Location of provider rendering services: practice address Location of patient: address on file Patient Identification confirmed using: Name, : Yes Telehealth method: video Patient verbally consented to treatment: Yes Patient verbally consented to billing insurance company: Yes Patient informed of any privacy concerns related to visit: Yes Minutes spent on Phone/Video with Pt.: 15 Assessment & Plan Assessment & Plan (1) Erectile dysfunction associated with type 2 diabetes mellitus: Code(s): .69 - Type 2 diabetes mellitus with other specified complication; N52.1 - Erectile dysfunction due to diseases classified elsewhere Category: Medical (2) Bladder outlet obstruction: Code(s): N32.0 - Bladder-neck obstruction Category: Medical (3) Urinary frequency: Code(s): R35.0 - Frequency of micturition Category: Medical Plan Prescribed alfuzosin Check testosterone Refill tadalafil Orders: Orders Testosterone, Free/Total Today .69 - Type 2 diabetes mellitus with other specified complication, N52.1 - Erectile dysfunction due to diseases classified elsewhere Lutenizing Hormone Today . - Type 2 diabetes mellitus with other specified complication, N52.1 - Erectile dysfunction due to diseases classified elsewhere Medications: New alfuzosin ER 10 mg PO DAILY 30 tabs 1RF 30 days N32.0 - Bladder-neck obstruction Refilled tadalafil 5 mg PO DAILY 90 tabs 3RF sexual activity 90 days E11.69 - Type 2 diabetes mellitus with other specified complication, N52.1 - Erectile dysfun ction due to diseases classified elsewhere Patient Instructions: This note is constructed using voice recognition software. While every effort has been made to ensure accuracy case therapist errors may have been included. Imaging studies, laboratory and physical exam results were discussed and reviewed in detail. No major barriers to patient understanding were identified. An opportunity to ask questions regarding the treatment plan was provided. All questions were answered. The patient expressed understanding and agreement with the above treatment plan. The patient is aware they should contact our office by phone for worsening of their current condition or the appearance of new urologic symptoms. Compliance is encouraged with any medications and followup testing that is ordered. It is a privilege to participate in the urologic care of your patient. If you have any questions or concerns regarding treatment for the above conditions, or other urologic issues, please do not hesitate to contact me. The office telephone contact is [phone]. Sincerely, Dr Minh Porras MD, [facility] - Urology Compassionate Specialist Care for the Genitourinary System Coding Level of Care Code Tele Est Pt Level 4 (78523) Diagnoses Erectile dysfunction associated with type 2 diabetes mellitus E11.69; N52.1 Bladder outlet obstruction N32.0 Urinary frequency R35.0
--- OUTSIDE RECORDS SUMMARY | 2024-10-09 09:44 | XMS_ITS | Encounter Summary ---
Author Organization [facility] Address [address] [place] [address] Phone Care Team Providers Care Control And Recovery Special Tactics Name Role Phone Natan Dickey MD Primary Care Provider [phone] Encounter Details Date Type Department Care Team (Late st Contact Info) Description 05/12/2020 Orders Only [facility] [address] [place] [address] [phone] Clemente Gomez MD Acute injury of kidney [...] [place] Blood, Urine NEG NEG [place] Specific [place] Urine 1.025 1.005 - 1.025 [place] Protein [...] AM EDT 05/12/2020 8:38 AM EDT us Clemetne Gomez MD LAB BLOOD ORDERABLES Final Resul t TEZ * Ultrasound renal complete (05/11/2020 9:46 AM EDT) Anatomical Region Laterality Modality Body Ultrasound us Clemente Gomez MD IMG US PROCEDURES Final Result documented in this encounter Visit Diagnoses Diagnosis Acute injury of kidney Essential (primary) hypertension documented in this encounter Care Teams Control And Recovery Special Tactics Relationship Specialty Start Date End Date Natan Dickey MD [address] [place] PCP - General Internal Medicine 04/28/20 documented as of this encounter
--- OUTSIDE RECORDS SUMMARY | 2024-10-09 09:44 | XMS_ITS | Clinical Summary ---
Author Organization [facility] Address [address] [place] [address] [place] [address] Phone Care Team Providers Care Stave Jointer Name Role Phone Natan Dickey MD Primary Care Provider [phone] Allergies Active Allergy Reactions Criticality Noted Date [...] Due Date Last Done Comments Pneumococcal Vaccine: 50+ Ye ars (1 of 2 - PCV) 07/23/1983 Colorectal Cancer Screening: Annual FOBT 2013 Colorectal Cancer Screening: Colonoscopy 2013 Colorectal Cancer Screening: Sigmoidoscopy 2013 Influenza Vaccine (#1) 2024 Hepatitis B Vaccine Aged Out No longe r eligible based on patient's age to complete this topic Insurance [facility] Teams Stave Jointer Relationship Specialty Start Date End Date Natan Dickey MD [address] [place] [address] [id number] [place], [place] PCP - General Internal Medicine 04/28/20
== END 2024-10-09 09:51 | disposition home or self-care (01) ==
LOC: HO.HUSH 08:54
PROVIDERS: PCP Internal Medicine; Visit Provider Urology
DX: E11.69 Type 2 diabetes mellitus with other specified complication (principal); N52.1 Erectile dysfunction due to diseases classified elsewhere; N32.0 Bladder-neck obstruction; R35.0 Frequency of micturition
CPT/HCPCS: 99214

== ENCOUNTER 2025-01-19 09:03 | Outpatient (AMB) | payer BC, SELFPAY ==
--- NOTE | 2025-01-19 09:05 | MHC.PC.OV ---
Vital Signs 01/19/25 09:11 Height 5 ft 6.14 in Weight 163 lb BMI 26.2 BP 152/84 H Blood Pressure Location Lt brachial Position Sitting Respiration 18 Pulse 72 Pulse Source Pulse Oximeter Temp 97.4 F Temp Source Temporal Artery Scan Pulse Oximetry (%) 97 Oxygen Delivery Method Room Air Intake Visit Reasons: 4 mo f/u Cost Recovery Technician Required: No Accompanied by: Self / Same As Patient Allergies iodine Allergy (Severe, Verified 01/19/25 09:06) Unknown shellfish derived Allergy (Severe, Verified 01/19/25 09:06) SWELLING Primatene Asthma Allergy (Unknown, Uncoded 05/09/24 09:25) Unknown sea food Allergy (Unknown, Uncoded 05/09/24 09:25) Swelling Medication List - Last Reconciled 01/19/25 by Darien Sharp MD alfuzosin ER 10 mg PO DAILY 30 days atorvastatin 20 mg PO DAILY blood-glucose sensor (LumiTheraStyle Nicole 3 Plus Sensor device) APPLY 1 SENSOR TO ARM EVERY 2 WEEKS enalapril maleate 5 mg PO DAILY insulin aspart U-100 (Novolog FlexPen U-100 Insulin aspart) subcut pen needle, diabetic As directed sodium fluoride-pot nitrate 1.1-5 % 1 appl dental BID tadalafil 5 mg PO DAILY 90 days Trulicity (dulaglutide) 1.5 mg (0.5 mL) subcut QWEEK 12 weeks NS Tobacco use date assessed: 05/09/24 Dental Screening Dental Screen Date: 05/09/24 HPI HPI Comments History of Present Illness Details History of Present Illness The patient is a 59 year old male presenting for a follow-up visit for management of chronic conditions, including diabetes, hypertension, and hypercholesterolemia. Regarding his type 2 diabetes, his HbA1c levels have been stable and well-controlled, with the last reading at 6.3% in September and 6.2% in April. He uses a continuous glucose monitor, which shows he is in range 68% of the time, and his GMI is 6.8 over 7 days, and 6.5 over the last 30 and 90 days. He notes a history of significantly elevated blood sugars, reaching 300-400 mg/dL, and an HbA1c of 11 in April of the previous year, which was attributed to steroid use during his chemotherapy for throat cancer. For benign prostatic hyperplasia, the patient reports urinary urgency for the last couple of months, though he denies increased frequency. He is managed by a urologist and takes alfuzosin 10 mg and tadalafil, which have somewhat minimized the urgency, though symptoms persist with variability. The patient has a history of pharyngeal cancer diagnosed about two years ago, for which he received chemotherapy and radiation. He follows up with his ENT specialist every 4 months and his radiation oncologist every 6 months. His hypertension is managed with lisinopril 5 mg. He reports that his blood pressure readings at home are typically normal, around 130/80 mmHg, but tend to be elevated in a clinical setting. His hypercholesterolemia is managed with atorvastatin 20 mg, and his last LDL was 53 mg/dL. He has a remote history of gout in his great toe but has not had issues in years. The patient reports having a diabetic eye exam every two years and denies ever having a podiatry evaluation. Medical History: - Pharyngeal cancer: Diagnosed approximately two years ago, treated with chemotherapy and radiation. - Type 2 Diabetes Mellitus: History of HbA1c as high as 11% during chemotherapy. - Hypertension - Hypercholesterolemia - Benign Prostatic Hyperplasia - Gout: History of gout in the great toe, quiescent for many years. Medications: - Alfuzosin 10 mg: For urinary urgency. - Tadalafil: For urinary urgency. - Atorvastatin 20 mg: For hypercholesterolemia. - Lisinopril 5 mg: For hypertension. - Trulicity 1.5 mg weekly: For type 2 diabetes. - Novolog (insulin aspart): As-needed on a sliding scale for diabetes, which he rarely uses. Diagnostic Results: - Labs: - HbA1c: 6.3% (September), 6.2% (April). - LDL Cholesterol: 53 mg/dL (last reading). - Tests and Diagnostics: - Continuous Glucose Monitor (CGM): Glucose Management Indicator (GMI) is 6.5 for the last 90 days, with 68% of readings in range. 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 - Substance Use: Denies ever smoking. 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 - Exercise: Attempts to work out every other day to stay active. Health Maintenance - Cancer Screening: The patient is appropriately following up with his ENT and oncology specialists for surveillance of his history of pharyngeal cancer. - He denies a history of smoking, so lung cancer screening is not indicated. - Diabetic Care: The patient was advised to undergo annual diabetic eye exams, as he currently gets them every two years. - He has never had a diabetic foot exam; a referral to podiatry will be placed for a baseline evaluation. - Lifestyle: The patient was strongly encouraged to maintain his level of physical activity after retiring from a physically demanding job, with a goal of working out every other day, to prevent health decline. Patient was informed and verbally consented to the use of an ambient scribe for clinic note documentation during this visit. Vital signs reviewed. Comprehensive history, review of systems, and physical exam completed. Medications, allergies, and problem list reviewed and updated. Counseling provided on nutrition, regular exercise, sleep hygiene, and moderation of alcohol use. Discussed age-appropriate screenings (mammogram, colonoscopy, Pap, bone density) and immunizations (flu, COVID, shingles, Tdap). Screened for depression, fall risk, and home safety; no current concerns. Discussed stress management, dental and vision care, and importance of ongoing preventive follow-up. Routine labs ordered for metabolic and lipid screening. Patient educated on healthy lifestyle and agrees with the plan. [facility] Medical History (Updated 01/19/25 @ 09:27 by Darien Sharp MD) History of throat cancer BPH NOS w/o ur obs/LUTS Hyperlipidemia Urinary frequency Gout Back problem Heart attack High cholesterol HTN (hypertension) Diabetes Surgical History (Updated 12/11/24 @ 07:28 by Shana Werner) Hx of colonoscopy (~12/31/20) Family History Father CHF (congestive heart failure) Mother Diabetes AD (Alzheimer's disease) Social History Housing: House Alcohol intake: current Alcohol intake frequency: does not drink Patient Tobacco Use Status: Never used Tobacco e-Cigarette/Vaping Use: Never Used service: No Current occupational status: retired Cognitive needs: No Hearing needs: No Vision needs: Yes (rx glasses) Questionnaire Thrive Questionnaire Date Thrive assessed: 05/09/24 AUDIT C Alcohol Use Questionnaire (AUDIT-C) 1. How often do you have a drink containing alcohol?: Never 3. How often do you have six or more drinks on one occasion?: Never Total Score: 0 GLENN-7 AMB Questionnaire GLENN-7 Date GLENN - 7 assessed: 05/09/24 Source: Developed by Drs. Gamaliel Fermin, Juana Dunham, Mikey Hilliard and colleagues, with an educational jennifer from [employer]. Review of Systems Narrative Review of Systems - Genitourinary: Reports urinary urgency for the past couple of months. Denies frequent urination. - General: Reports feeling well. - Constitutional: Denies any side effects from Trulicity. All systems reviewed & are unremarkable except as reviewed in HPI and above Physical exam (Primary Care) Vital Signs: Last Vital Signs Temp 97.4 F 01/19/25 09:11 Pulse 72 01/19/25 09:11 Resp 18 01/19/25 09:11 BP 152/84 H 01/19/25 09:11 Pulse Ox 97 01/19/25 09:11 Oxygen Delivery Method Room Air 01/19/25 09:11 BMI result Body Mass Index 26.2 Tobacco/Smoking Status: Tobacco use Status Tobacco use date assessed 05/09/24 01/19/25 09:13 Patient Tobacco Use Status Never used Tobacco 01/19/25 09:13 e-Cigarette/Vaping Use Never Used 01/19/25 09:13 Thrive Assessment: Date of Thrive Assessment Date Thrive assessed 05/09/24 01/19/25 09:13 Narrative Physical Exam General: +Alert and oriented, Well nourished, No acute distress. Eye: Pupils are equal, round and reactive to light, Intact accommodation, Extraocular movements are intact, Normal conjunctiva, Vision unchanged. HENT: Normocephalic, Atraumatic, Tympanic membranes are clear, Normal hearing, Oral mucosa is moist, No pharyngeal erythema, Ear canals patent. Respiratory: Lungs CTA bilaterally, No wheeze, Respirations are non-labored. Cardiovascular: Regular rate, Regular rhythm, S1 auscultated, S2 auscultated, No murmur, Good pulses equal in all extremities, Normal peripheral perfusion, No edema. Gastrointestinal: Soft, Non-tender, Non-distended, Normal bowel sounds, No organomegaly. Musculoskeletal: Normal range of motion, Normal strength, No tenderness, No swelling, No deformity, Normal gait. Integumentary: Warm, Dry, [place], Intact. Neurologic: Alert, Oriented, Normal sensory, Normal motor function, No focal defects, Cranial Nerves II-XII are grossly intact, Normal deep tendon reflexes. Psychiatric: Cooperative, Appropriate mood & affect, Normal judgment. Coding Level of Care Code Est Pt Level 4 (10126) Complex visit Add On G2211 Diagnoses Type 2 diabetes mellitus without complication, without long-term current use of insulin E11.9 Diabetes mellitus type: type 2 Diabetes mellitus mcfp insulin use: without mcfp use Diabetes mellitus complication status: without complication Primary hypertension I10 Hypertension type: primary hypertension Hyperlipidemia, unspecified hyperlipidemia type E78.5 Hyperlipidemia type: unspecified BPH NOS w/o ur obs/LUTS N40.0 History of throat cancer Z85.819 Assessment & Plan Assessment & Plan (1) Diabetes: Comment: - The patient's diabetes is well-controlled on Trulicity 1.5 mg weekly, with recent HbA1c levels of 6.2-6.3% and a 90-day GMI of 6.5. - He will continue his current regimen. - Repeat blood work, including sugars, will be obtained the week before his next follow-up appointment in four months to assess control and make any necessary changes. - The patient was educated on the need for annual diabetic eye and foot exams. - A referral will be placed for podiatry for a baseline diabetic foot evaluation. - He was advised to get a yearly eye exam. Code(s): E11.9 - Type 2 diabetes mellitus without complications Category: Medical Qualifiers: Diabetes mellitus type: type 2 Diabetes mellitus mcfp insulin use: without intermodal customer service use Diabetes mellitus complication status: without complication Qualified Code(s): E11.9 - Type 2 diabetes mellitus without complications (2) HTN (hypertension): Comment: - Blood pressure is currently elevated in the office but reported to be well-controlled at home with readings around 130/80 mmHg. - This is consistent with white coat hypertension. - He will continue his current medication, lisinopril 5 mg. No changes will be made to his regimen at this time. Code(s): I10 - Essential (primary) hypertension Category: Medical Qualifiers: Hypertension type: primary hypertension Qualified Code(s): I10 - Essential (primary) hypertension (3) Hyperlipidemia: Comment: - The patient's cholesterol is well-controlled on atorvastatin 20 mg, with a recent LDL of 53 mg/dL. - He will continue his current medication without changes. Code(s): E78.5 - Hyperlipidemia, unspecified Category: Medical Qualifiers: Hyperlipidemia type: unspecified Qualified Code(s): E78.5 - Hyperlipidemia, unspecified (4) BPH NOS w/o ur obs/LUTS: Comment: - The patient reports some improvement in urinary urgency with alfuzosin and tadalafil, though symptoms persist. - He is under the care of a urologist for this condition, and management will be deferred to the specialist. Code(s): N40.0 - Benign prostatic hyperplasia without lower urinary tract symptoms Category: Medical (5) History of throat cancer: Comment: - The patient remains in remission and is stable. - He is appropriately following up with his ENT and radiation oncology teams. - No new management is required at this visit. Code(s): Z85.819 - Personal history of malignant neoplasm of unspecified site of lip, oral cavity, and pharynx Category: Medical Plan: Health Maintenance: - Cancer Screening: The patient is appropriately following up with his ENT and oncology specialists for surveillance of his history of pharyngeal cancer. - He denies a history of smoking, so lung cancer screening is not indicated. - Diabetic Care: The patient was advised to undergo annual diabetic eye exams, as he currently gets them every two years. - He has never had a diabetic foot exam; a referral to podiatry will be placed for a baseline evaluation. - Lifestyle: The patient was strongly encouraged to maintain his level of physical activity after retiring from a physically demanding job, with a goal of working out every other day, to prevent health decline. Patient was informed and verbally consented to the use of an ambient scribe for clinic note documentation during this visit. Plan I reviewed the patient's current health status and am pleased with his management of chronic conditions. I noted his excellent glycemic control based on his recent HbA1c and continuous glucose monitor data. I informed him that we will continue his current medications for diabetes, hypertension, and hypercholesterolemia without any changes at this time. We discussed the importance of preventative care for diabetes, specifically the need for annual eye exams and foot exams. I explained that poorly controlled diabetes can lead to complications like neuropathy, and regular foot checks are crucial for prevention. Consequently, I will place a referral to podiatry for a baseline evaluation. I strongly encouraged him to remain physically active following his recent halfway, emphasizing that slowing down could lead to a decline in health. We scheduled a follow-up appointment in four months and will have him complete blood work the week prior so we can review the results together. Orders: Orders Hemoglobin A1c 4 Months E11.9 - Type 2 diabetes mellitus without complications Referrals Podiatry Referral E11.9 - Type 2 diabetes mellitus without complications Patient Instructions: - Continue taking all your current medications as prescribed. We are not making any changes today. - We will recheck your blood work, including your sugar levels, one week before your next visit. - It is important for you to get a yearly eye exam because of your diabetes. Please schedule one if you haven't recently. - We are referring you to a foot doctor (threat monitoring analyst) for a diabetic foot check. Their office will contact you to schedule an appointment. - Keep staying active now that you are retired. Try to get a workout in every other day. Do not slow down. - Please schedule a follow-up appointment with our office in four months.
[2025-01-19 09:11] VITALS: BP 152/84; PULSE 72; RESP 18; TEMP 36.3; O2SAT 97; BMI 26.2
== END 2025-01-19 09:27 | disposition home or self-care (01) ==
LOC: HO.HMCHD 09:03
PROVIDERS: PCP Student in an Organized Health Care Education/Training Program; Visit Provider Student in an Organized Health Care Education/Training Program
DX: E11.9 Type 2 diabetes mellitus without complications (principal); I10 Essential (primary) hypertension; E78.5 Hyperlipidemia, unspecified; N40.0 Benign prostatic hyperplasia without lower urinary tract symptoms; Z85.819 Personal history of malignant neoplasm of unspecified site of lip, oral cavity, and pharynx